=== PATIENT | male | born 1975 | race Caucasian/White ===

== ENCOUNTER 2018-02-20 16:35 | Emergency (ER) | payer SELFPAY ==
[2018-02-20 16:45] VITALS: BP 142/85; PULSE 114; O2SAT 97
--- NOTE | 2018-02-20 17:11 | ERPHSYRPT ---
- History of Present Illness Time Seen by Provider: 02/20/18 17:06 Source: patient, police Exam Limitations: no limitations Patient Subjective Stated Complaint: intoxication Triage Nursing Assessment: Pt intoxicated and in hand cuffs, no edema, pulses normal BP 142/85, lungs clear, doesn't appear to be in any distress Physician History: 43-year-old white male brought in handcuffs by the police patient apparently noted to blow a 0.3 on his alcohol breathalyzer test. Patient arrives he is alert oriented 3 he has full range of motion to all extremities. He is refusing an Accu-Chek and assisted wants to leave once to leave. Physical refill past medical history includes cyst removed from his right shoulder and orthopedic surgery. He denies any other past medical history. He states he drank 5 beers today. He denies illicit drug use. Timing/Duration: today Severity: moderate Modifying Factors: Improves With: nothing Associated Symptoms: denies symptoms Allergies/Adverse Reactions: No Known Drug Allergies Allergy (Verified 02/20/18 16:45) Home Medications: No Home Meds [No Home Meds] 1 ea [facility] 08/12/16 [History] Hx Tetanus, Diphtheria Vaccination/Date Given: No Hx Influenza Vaccination/Date Given: No Hx Pneumococcal Vaccination/Date Given: No - Review of Systems Constitutional: No Fever, No Chills Eyes: No Symptoms Ears, Nose, & Throat: No Symptoms Respiratory: No Cough, No Dyspnea Cardiac: No Chest Pain, No Edema, No Syncope Abdominal/Gastrointestinal: No Abdominal Pain, No Nausea, No Vomiting, No Diarrhea Genitourinary Symptoms: No Dysuria Musculoskeletal: No Back Pain, No Neck Pain Skin: No Rash Neurological: No Dizziness, No Focal Weakness, No Sensory Changes Psychological: Alcohol Abuse, No Drug Abuse, No Anxiety, No Depression, No Suicidal Ideations, No Homicidal Ideations, No Emotional Lability, No Hallucinations, No Memory Loss, No Mood Changes Endocrine: No Symptoms All Other Systems: Reviewed and Negative - Past Medical History Pertinent Past Medical History: No Other Medical History: cyst removed from right back shoulder approx 2014 - Past Surgical History Past Surgical History: Yes Musculoskeletal: Orthopedic Surgery - Social History Smoking Status: Current every day smoker How long have you smoked: YRS Exposure to second hand smoke: No Drug Use: none Patient Lives Alone: No - Nursing Vital Signs Nursing Vital Signs: Initial Vital Signs Temperature 98.7 F 02/20/18 16:36 Pulse Rate 114 H 02/20/18 16:36 Blood Pressure 142/85 02/20/18 16:36 O2 Sat by Pulse Oximetry 97 02/20/18 16:36 Pain Scale Pain Intensity 0 - Physical Exam General Appearance: no apparent distress, alert, No other (well-developed white male alert oriented ) Eye Exam: PERRL/EOMI, eyes nml inspection, No other Ears, Nose, Throat Exam: normal ENT inspection, TMs normal, pharynx normal, moist mucous membranes Neck Exam: normal inspection, non-tender, supple, full range of motion Respiratory Exam: normal breath sounds, lungs clear, No respiratory distress Cardiovascular Exam: regular rate/rhythm, normal heart sounds, normal peripheral pulses Gastrointestinal/Abdomen Exam: soft, normal bowel sounds, No tenderness, No mass Back Exam: normal inspection, normal range of motion, No CVA tenderness, No vertebral tenderness Extremity Exam: normal inspection, normal range of motion, pelvis stable Neurologic Exam: alert, 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, cooperative, normal mood/affect, nml cerebellar function, nml station & gait, sensation nml, No motor deficits Skin Exam: normal color, warm, dry, No rash SpO2 Interpretation: normal SpO2: 97 Oxygen Delivery: Room Air - Course Nursing assessment & vital signs reviewed: Yes - Progress Progress: improved Progress Note: 02/20/18 17:09 43-year-old white male arrives with police patient apparently was combative and admits to drinking 5 beers on arrival patient is swearing at staff he is alert oriented he cooperates with my examination but refuses Accu-Chek. He blew a 0.3 on blood alcohol test. Patient in no acute distress she denies significant past medical history Will discharge patient to police. - Departure Time of Disposition: 17:10 Departure Disposition: Long-Term/Alf Clinical Impression: Alcohol intoxication Qualifiers: Complication of substance-induced condition: uncomplicated Qualified Code(s): F10.920 - Alcohol use, unspecified with intoxication, uncomplicated Condition: Fair Critical Care Time: No Referrals: Provider,Unknown [NON-STAFF PHY W/O PRIVILEGES] - Additional Instructions: Proceed to [facility]. Follow-up with your family doctor. Do not drive.
== END 2018-02-20 17:16 | disposition home or self-care (01) ==
LOC: ED 16:35
DX: F10.920 Alcohol use, unspecified with intoxication, uncomplicated (principal)
CPT/HCPCS: 99283

== ENCOUNTER 2019-09-18 21:52 | Inpatient (IN) | payer MEDICAID ==
[2019-09-18] MEDS ORDERED: Sodium Chloride 0.9% 1000 ML 1,000 ML IV STA (23:06)
[2019-09-18] MEDS ORDERED: TORAdol 30 mg Injection IV ONE (23:08)
--- NOTE | 2019-09-18 23:13 | ERPHSYRPT ---
- History of Present Illness Time Seen by Provider: 09/18/19 22:40 Historian: patient Patient Subjective Stated Complaint: pt states he has been having abd pain, fever, chills since sunday. sttes yesterday he began h aving difficulty urinating. c/o pelvic pain radiating to bilat lower back. Triage Nursing Assessment: pt alert and oriented, ansers qeustions approp. pt ambulatory iwht steadyg ait noted, respirations nonlabredw ith lungs cta. abd soft nontender to light palpation. hypo bowel ounds noted x4. pt states he is unable to u rinate for sample at this time. Physician History: abd pain, lower abd pain since 4 days. along with vomiting diarrhea. eating drinking well. noticed urine to be dark, appeared like blood.. never had pain like this befre. healthy otherwise. no fever chills. no previous abd surgeries. pain sharp, lower abd, constant. also has some pain in b/l flanks., 8/10 pain in hypogastric area Allergies/Adverse Reactions: No Known Drug Allergies Allergy (Verified 02/20/18 16:45) Home Medications: No Home Meds [No Home Meds] 1 ea [facility] 08/12/16 [History] Hx Tetanus, Diphtheria Vaccination/Date Given: No (unknown) Hx Influenza Vaccination/Date Given: No Hx Pneumococcal Vaccination/Date Given: No Immunizations Up to Date: No - Review of Systems Constitutional: No Fever Eyes: No Symptoms Ears, Nose, & Throat: No Symptoms Respiratory: No Symptoms Cardiac: No Symptoms Abdominal/Gastrointestinal: Abdominal Pain, Nausea, Vomiting, Diarrhea Genitourinary Symptoms: Hematuria, No Dysuria, No Frequency Musculoskeletal: No Symptoms Skin: No Symptoms Psychological: No Symptoms - Past Medical History Pertinent Past Medical History: No Neurological History: No Pertinent History Cardiac History: No Pertinent History Respiratory History: No Pertinent History Other Medical History: cyst removed from right back shoulder approx 2014 - Past Surgical History Past Surgical History: Yes Musculoskeletal: Orthopedic Surgery - Social History Smoking Status: Current every day smoker How long have you smoked: 30yrs Exposure to second hand smoke: No Drug Use: none Patient Lives Alone: No - Nursing Vital Signs Nursing Vital Signs: Initial Vital Signs Temperature 98.4 F 09/18/19 22:22 Pulse Rate 92 H 09/18/19 22:22 Respiratory Rate 18 01/02/20 22:22 Blood Pressure 146/90 09/18/19 22:22 O2 Sat by Pulse Oximetry 97 09/18/19 22:22 Pain Scale Pain Intensity 8 - Physical Exam General Appearance: no apparent distress Eye Exam: PERRL/EOMI Ears, Nose, Throat Exam: normal ENT inspection Neck Exam: normal inspection Respiratory Exam: normal breath sounds Cardiovascular Exam: regular rate/rhythm Gastrointestinal/Abdomen Exam: soft, normal bowel sounds, No tenderness Back Exam: normal inspection, CVA tenderness Extremity Exam: normal inspection Neurologic Exam: alert, 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 Skin Exam: normal color, warm SpO2: 97 Ordered Tests: Active Orders 24 hr Category Date Time Status Code Status Order ROUTINE Care 09/18/19 23:06 Active Code Status Order ROUTINE Care 09/19/19 01:00 Active NG to Suction (Insertion) ROUTINE Care 09/19/19 00:45 Active ABDOMEN AND PELVIS W/0 CONTRAS [CT] Stat Exams 09/18/19 23:27 Taken CBC W DIFF Stat Lab 09/18/19 23:12 Completed CMP Stat Lab 09/18/19 23:12 Completed LIPASE Stat Lab 09/18/19 23:12 Completed Lactic Acid Stat Lab 09/18/19 23:06 Results Manual Differential NC Stat Lab 09/18/19 23:12 Completed OCCULT BLOOD, EMESIS Stat Lab 09/19/19 Uncollected UA W/RFX UR CULTURE Stat Lab 09/18/19 23:48 Ordered Transfer Order Routine Transfer 09/19/19 Ordered Medication Summary Generic Name Dose Route Start Last Admin Trade Name Freq PRN Reason Stop Dose Admin Piperacillin Sod/Tazobactam Sod 3.375 gm in 100 mls @ 200 mls/hr 09/19/19 00: 45 09/19/19 00:59 Zosyn 3.375gm/100 Ml D5w IV 09/19/19 01:14 100 ml/hr STAT STA 100 mls/hr Administration Sodium Chloride 1,000 mls @ 999 mls/hr 09/19/19 01:00 Sodium Chloride 0.9% 1000 Ml IV 09/19/19 02:00 .Q1H1M STA Discontinued Medications Generic Name Dose Route Start Last Admin Trade Name Freq PRN Reason Stop Dose Admin Al Hydrox/Mg Hydrox/Simethicone 20 ml 09/19/19 00:00 09/19/19 00:12 Maalox Es 30 Ml Unit Dose PO 09/19/19 00:01 20 ml STAT ONE Administration Al Hydrox/Mg Hydrox/Simethicone Confirm 09/19/19 00:07 Maalox Es 30 Ml Unit Dose Administered 09/19/19 00:08 Dose 30 ml .ROUTE .STK-MED ONE Sodium Chloride 1,000 mls @ 999 mls/hr 09/18/19 23:06 09/18/19 23:19 Sodium Chloride 0.9% 1000 Ml IV 09/19/19 00:06 999 mls/hr .Q1H1M STA Administration Sodium Chloride Confirm 09/18/19 23:14 Sodium Chloride 0.9% 1000 Ml Administered 09/18/19 23:15 Dose 1,000 mls @ ud .ROUTE .STK-MED ONE Piperacillin Sod/Tazobactam Sod Confirm 09/19/19 00:54 Zosyn 3.375gm/100 Ml D5w Administered 09/19/19 00:55 Dose 3.375 gm in 100 mls @ ud IV .STK-MED ONE Ketorolac Tromethamine 30 mg 09/18/19 23:08 09/18/19 23:20 Toradol 30 Mg Injection IV 09/18/19 23:09 30 mg STAT ONE Administration Ketorolac Tromethamine Confirm 09/18/19 23:14 Toradol 30 Mg Injection Administered 09/18/19 23:15 Dose 30 mg .ROUTE .STK-MED ONE Morphine Sulfate 4 mg 09/19/19 00:46 09/19/19 00:59 Morphine Sulfate 4 Mg Inj IV 09/19/19 00:47 4 mg STAT ONE Administration Morphine Sulfate Confirm 09/19/19 00:53 Morphine Sulfate 4 Mg Inj Administered 09/19/19 00:54 Dose 4 mg .ROUTE .STK-MED ONE Ondansetron HCl 4 mg 09/19/19 00:00 09/19/19 00:10 Zofran 4 Mg/2 Ml Vial IV 09/19/19 00:01 4 mg STAT ONE Administration Ondansetron HCl Confirm 09/19/19 00:07 Zofran 4 Mg/2 Ml Vial Administered 09/19/19 00:08 Dose 4 mg .ROUTE .STK-MED ONE Potassium Chloride 40 meq 09/18/19 23:44 09/19/19 00:10 Klor Con 10 Meq PO 09/18/19 23:45 40 meq STAT ONE Administration Potassium Chloride Confirm 09/19/19 00:07 Klor Con 10 Meq Administered 09/19/19 00:08 Dose 30 meq PO .STK-MED ONE Prochlorperazine Edisylate 10 mg 09/19/19 00:36 Compazine 10 Mg/2 Ml IV 09/19/19 00:37 STAT ONE Prochlorperazine Edisylate Confirm 09/19/19 00:53 Compazine 10 Mg/2 Ml Administered 09/19/19 00:54 Dose 10 mg .ROUTE .STK-MED ONE Lab/Rad Data: Laboratory Result Diagrams 09/18/19 23:12 09/18/19 23:12 Laboratory Results 09/18/19 09/18/19 09/18/19 Range/Units 23:12 23:12 23:06 WBC 11.0 H (4.0-10.5) K/mm3 RBC 5.09 (4.1-5.6) M/mm3 Hgb 17.8 (12.5-18.0) gm/dl Hct 49.1 (42-50) % MCV 96.5 (78-100) fl MCH 35.0 H (26-32) pg MCHC 36.3 H (32-36) g/dl RDW 11.7 (11.5-14.0) % Plt Count 111 L (150-450) K/mm3 MPV 11.1 H (6-9.5) fl Segmented Neutrophils 63 (36.-66.) % Band Neutrophils 16 H (0.0-2.0) % Lymphocytes (Manual) 6 L (24-44) % Monocytes (Manual) 15 H (0.0-12.0) % Platelet Estimate NORMAL (NORMAL) RBC Morphology NORMAL Sodium 127 L (137-145) mmol/L Potassium 3.2 L (3.5-5.1) mmol/L Chloride 84 L (98-107) mmol/L Carbon Dioxide 32 H (22-30) mmol/L Anion Gap 14.7 (5-15) MEQ/L BUN 22 H (9-20) mg/dL Creatinine 1.02 (0.66-1.25) mg/dL Estimated GFR > 60.0 ML/MIN Glucose 155 H (74-106) mg/dL Lactic Acid 2.3 H (0.4-2.0) Calcium 8.8 (8.4-10.2) mg/dL Total Bilirubin 1.20 (0.2-1.3) mg/dL AST 49 (17-59) U/L ALT 45 (0-50) U/L Alkaline Phosphatase 62 (38-126) U/L Serum Total Protein 8.0 (6.3-8.2) g/dL Albumin 3.8 (3.5-5.0) g/dL Lipase 13 L (23-300) U/L - Progress Progress: unchanged Discussed with : Epifanio Will see patient in: hospital (full admit) Counseled pt/family regarding: lab results, diagnosis (hyponatremia, hypokalemia , platelets low, lactate 2.3. ct abd pelvis shows high grade distal sb with perf and ext free intraperitoneal gas. pt started vomiting some blood. NG with suction, zosyn ordered. Jose Eduardo Tellez at 12:50 am who accepted the pt to the [facility]. will get OR ready. 2 l ns bolus in ER and then at 200 an hour. morphine dilaudid prn) - Departure Departure Disposition: Home Clinical Impression: Small bowel obstruction, Intestinal perforation Condition: Serious Critical Care Time: No Referrals: DOCTOR,NO FAMILY [Primary Care Provider] -
[2019-09-18] MEDS ORDERED: TORAdol 30 mg Injection ONE (23:14)
[2019-09-18] MEDS ORDERED: Sodium Chloride 0.9% 1000 ML 1,000 ML ONE (23:14)
[2019-09-18 23:16] LABS: Hematocrit 49.1 % (42-50); Hemoglobin 17.8 gm/dl (12.5-18.0); Mean Cell Volume 96.5 fl (78-100); Mean Corpuscular Hgb Concent. 36.3 g/dl (32-36); Mean Platelet Volume 11.1 fl (6-9.5); Platelet Count 111 K/mm3 (150-450); Red Blood Count 5.09 M/mm3 (4.1-5.6); Red Cell Distribution Width 11.7 % (11.5-14.0)
[2019-09-18 23:20] LABS: ALBUMIN 3.8 g/dL (3.5-5.0); ALKALINE PHOSPHATASE 62 U/L (38-126); ANION GAP 14.7 MEQ/L (5-15); BLOOD UREA NITROGEN 22 mg/dL (9-20); CHLORIDE 84 mmol/L (98-107); Calcium 8.8 mg/dL (8.4-10.2); Carbon Dioxide 32 mmol/L (22-30); Creatinine 1 1.02 mg/dL (0.66-1.25); Glucose 155 mg/dL (74-106); LIPASE 13 U/L (23-300); Potassium 3.2 mmol/L (3.5-5.1); SGOT/AST 49 U/L (17-59); SGPT/ALT 45 U/L (0-50); SODIUM 127 mmol/L (137-145)
[2019-09-18 23:33] LABS: Lactic Acid 2.3 (0.4-2.0)
[2019-09-18] MEDS ORDERED: Klor Con 10 MEQ PO ONE (23:44)
[2019-09-19] MEDS ORDERED: MAALOX ES 30 ML UNIT DOSE PO ONE
[2019-09-19] MEDS ORDERED: Zofran 4 MG/2 ML VIAL IV ONE
[2019-09-19] MEDS ORDERED: Klor Con 10 MEQ PO ONE (00:07)
[2019-09-19] MEDS ORDERED: MAALOX ES 30 ML UNIT DOSE ONE (00:07)
[2019-09-19] MEDS ORDERED: Zofran 4 MG/2 ML VIAL ONE ×3 (00:07→03:01)
[2019-09-19 00:23] LABS: BAND 16 % (0.0-2.0); Lymphocytes 6 % (24-44); Monocyte 15 % (0.0-12.0); Neutrophils 63 % (36.-66.); Platelet Estimate NORMAL (NORMAL); Total Cells Counted 100
[2019-09-19] MEDS ORDERED: Compazine 10 MG/2 ML IV ONE (00:36)
[2019-09-19] MEDS ORDERED: Zosyn 3.375GM/100 Ml D5W 3.375 GM/100 ML IVPB IV STA (00:45)
[2019-09-19] MEDS ORDERED: MORPHINE SULFATE 4 MG INJ IV ONE (00:46)
[2019-09-19] MEDS ORDERED: MORPHINE SULFATE 4 MG INJ ONE (00:53)
[2019-09-19] MEDS ORDERED: Compazine 10 MG/2 ML ONE (00:53)
[2019-09-19] MEDS ORDERED: Zosyn 3.375GM/100 Ml D5W 3.375 GM/100 ML IVPB IV ONE (00:54)
[2019-09-19] MEDS ORDERED: Sodium Chloride 0.9% 1000 ML 1,000 ML IV STA (01:00)
[2019-09-19] MEDS ORDERED: Sodium Chloride 0.9% 1000 ML 1,000 ML ONE (01:03)
[2019-09-19 01:11] LABS: Appearance SLIGHTLY CLOUDY (CLEAR); Bacteria RARE /HPF (NEGATIVE); Bilirubin SMALL (NEGATIVE); Blood NEGATIVE Ery/ul (0-5); Epithelial Cells RARE /HPF (FEW); Glucose NEGATIVE (NEGATIVE); Hyaline Casts 26-50 /LPF (0-2); Ketones NEGATIVE (NEGATIVE); Leukocyte Esterase NEGATIVE (NEGATIVE); Mucus SLIGHT /HPF (NEGATIVE); Nitrite NEGATIVE (NEGATIVE); Protein,Urine Dip 30 (Negative); RBC 0-2 /HPF (0-2); Specific Gravity 1.023 (1.005-1.025); Urobilinogen 4 mg/dL (0-1); WBC 0-2 /HPF (0-5)
[2019-09-19] MEDS ORDERED: Pepcid 20 MG VIAL IV ONE ×2 (01:53→01:54)
[2019-09-19] MEDS ORDERED: BICITRA 30 ML CUP PO STA (01:53)
[2019-09-19] MEDS ORDERED: Lactated Ringers 3,000 ML IV ONE (01:59)
[2019-09-19] MEDS ORDERED: Zemuron 100 MG/10 ML ONE (02:01)
[2019-09-19] MEDS ORDERED: Quelicin Fliptop 200 MG/10 ML ONE (02:01)
[2019-09-19] MEDS ORDERED: SUBLIMAZE 100 MCG/2 ML ONE (02:01)
[2019-09-19] MEDS ORDERED: DIPRIVAN 200 MG/20 ML IV ONE (02:01)
[2019-09-19] MEDS ORDERED: Lactated Ringers 1,000 ML IV ONE (02:07)
[2019-09-19] MEDS ORDERED: Decadron 4 MG INJ ONE ×2 (02:08→03:01)
[2019-09-19] MEDS ORDERED: MEFOXIN 2 GM PREMIX** 2 GM/50 ML ML IV ONE (02:10)
[2019-09-19] MEDS ORDERED: MEFOXIN 2 GM PREMIX** 2 GM/50 ML ML IV SCH (03:00)
[2019-09-19] MEDS ORDERED: Lasix 20 MG/2 ML ONE (04:02)
[2019-09-19] MEDS ORDERED: XYLOCAINE 2%/Epi 1:200000 20ML VIAL MPF ONE (04:05)
[2019-09-19] MEDS ORDERED: NAROPIN IV SCH (04:50)
[2019-09-19] MEDS ORDERED: [UNRECOGNIZED DRUG - OTHER] IV SCH (04:50)
[2019-09-19] MEDS ORDERED: SUFENTA IV SCH (04:50)
[2019-09-19 05:59] LABS: Hematocrit 43.2 % (42-50); Hemoglobin 15.4 gm/dl (12.5-18.0); Mean Cell Volume 98.2 fl (78-100); Mean Corpuscular Hgb Concent. 35.6 g/dl (32-36); Mean Platelet Volume 11.2 fl (6-9.5); Platelet Count 86 K/mm3 (150-450); Red Cell Distribution Width 11.5 % (11.5-14.0); White Blood Count 6.1 K/mm3 (4.0-10.5)
[2019-09-19] MEDS ORDERED: Sodium Chloride 0.9% 1000 ML 1,000 ML IV SCH ×2 (06:00→06:29)
[2019-09-19 06:17] LABS: ANION GAP 9.1 MEQ/L (5-15); BLOOD UREA NITROGEN 19 mg/dL (9-20); CHLORIDE 94 mmol/L (98-107); Calcium 7.5 mg/dL (8.4-10.2); Carbon Dioxide 31 mmol/L (22-30); Creatinine 1 0.76 mg/dL (0.66-1.25); Glucose 164 mg/dL (74-106); Potassium 3.6 mmol/L (3.5-5.1); SODIUM 130 mmol/L (137-145)
[2019-09-19] MEDS ORDERED: Zofran 4 MG/2 ML VIAL IV PRN ×2 (06:29→07:45)
[2019-09-19] MEDS ORDERED: DILAUDID 2 MG INJECTION IV PRN (06:29)
[2019-09-19] MEDS ORDERED: MORPHINE SULFATE 2 MG INJ IV PRN (06:29)
[2019-09-19 07:16] LABS: Amourphous Crystal MANY /HPF (NEGATIVE); Appearance TURBID (CLEAR); Bilirubin NEGATIVE (NEGATIVE); Blood NEGATIVE Ery/ul (0-5); Glucose NEGATIVE (NEGATIVE); Ketones NEGATIVE (NEGATIVE); Leukocyte Esterase NEGATIVE (NEGATIVE); Nitrite NEGATIVE (NEGATIVE); Protein,Urine Dip NEGATIVE (Negative); Specific Gravity 1.027 (1.005-1.025); Urobilinogen NEGATIVE mg/dL (0-1)
[2019-09-19] MEDS ORDERED: TYLENOL 325 MG PO PRN (07:36)
[2019-09-19] MEDS ORDERED: CLARITIN 10 MG PO PRN (07:45)
[2019-09-19] MEDS ORDERED: NALBUPHINE HCL 10 MG/1 ML INJECTION IV PRN (07:45)
[2019-09-19] MEDS ORDERED: Sodium Chloride 0.9% 10 ML FLUSH Syringe IJ PRN (07:45)
[2019-09-19] MEDS ORDERED: Narcan 0.4 MG/ML IV PRN (07:45)
[2019-09-19] MEDS ORDERED: PERCOCET TABLET 5/325MG PO PRN (07:45)
--- NOTE | 2019-09-19 07:48 | HP ---
CHIEF COMPLAINT: Abdominal pain. HISTORY OF PRESENT ILLNESS: This patient presents with nausea, vomiting and diarrhea that started Sunday with pain that was initially somewhat mild and last night it became quite severe. He stopped urinating tonight and decided to come to the emergency room tonight. He has been having fever. He denies chest pain or shortness of breath. He has not had anything like this before. He has never had a colonoscopy. He has been having copious nausea and vomiting today. He did think he had a stomach flu but then became concerned when he stopped urinating. His pain was more severe in the lower abdomen. REVIEW OF SYSTEMS: Twelve systems reviewed. Negative other than in history of present illness. PAST MEDICAL HISTORY: None. PAST SURGICAL HISTORY: Cyst removed from his shoulder. MEDICATIONS: [id number] reflux and allergy medication. ALLERGIES: NKDA. SOCIAL HISTORY: Positive tobacco and alcohol about six or seven beers a day. FAMILY HISTORY: No inflammatory bowel disorder. No colon cancer. PHYSICAL EXAMINATION: GENERAL: Moderate distress. HEENT: Sclera nonicteric. Extraocular movements intact. NG tube in place with bilious output. CHEST: Nonlabored breathing. Clear to auscultation bilaterally. ABDOMEN: Distended with diffuse guarding and tenderness greatest in the lower abdomen but diffusely peritoneal. NEURO: Awake, alert, oriented. PSYCH: Appropriate mood and affect. LAB DATA AND TESTS: White blood cell 11,000. BMP significant for hypernatremia with sodium of 120. Lactic acid is also slightly elevated. CT scan consistent with perforated viscus and small bowel obstruction with the majority of the free air in the pelvis. ASSESSMENT: Perforated viscus with small bowel obstruction. Sepsis from perforated viscus. Hypernatremia. PLAN: CT scan was reviewed personally. I would suspect this is most likely perforated diverticulitis with a secondary small bowel obstruction. However it is not totally clear from this imaging. After extensive discussion about the risks and benefits of surgery including high likelihood of needing a colostomy and expectation for probably a bowel resection or other indicated procedure depending on what is found at the time of laparotomy and the risk of surgery including risk of bleeding, infection, injury to other organs as well as other medical surgical complications, the patient would like to proceed with surgery. The patient is receiving fluid resuscitation, Zosyn and will plan to go to the operating room.
[2019-09-19] MEDS ORDERED: Lactated Ringers 1,000 ML IV SCH (08:00)
--- NOTE | 2019-09-19 09:46 | XRAY ---
Indication: Pelvic pain. Nausea, vomiting, diarrhea 1 week. Hematuria. Multiple contiguous axial images obtained through the abdomen and pelvis without contrast as ordered. Comparison: None Lung bases demonstrates bibasilar atelectasis/scarring. No infiltrate or effusion. Heart is not enlarged. Stomach is abnormally fluid distended. Small bowel loops are also abnormally fluid distended up to 5 cm diameter with fluid leveling up to level of the midabdomen where there is suggestion for partial obstruction. Colon is predominantly decompressed with mild bowel gas and scattered sigmoid diverticulosis. The sigmoid colon also demonstrates abnormal wall thickening/stranding favoring diverticulitis. Pelvis also demonstrates focal collection of free air and free fluid collection worrisome for perforation. Additional small free air throughout the abdomen. Diffuse fatty liver. Spleen is enlarged measuring 16.2 cm in greatest axial dimension. Remaining gallbladder, pancreas, adrenal glands, kidneys, ureters, and bladder appear unremarkable for noncontrast exam. Minimal aortoiliac calcifications without AAA. Osseous structures intact with minimal degenerative changes throughout the spine. Impression: 1. Abnormal fluid distended stomach and small bowel loops up to the level of the mid abdomen with fluid leveling worrisome for high-grade obstruction. 2. Sigmoid diverticulitis with perforation. 3. Incidental fatty liver and splenomegaly. Comment: Preliminary interpretation was made by [facility] who does not report additional findings including sigmoid diverticulitis and splenomegaly.
[2019-09-19] MEDS: Zosyn 3.375GM/100 Ml D5W 3.375 GM/100 ML IVPB IV SCH ×4 (11:19→23:15)
[2019-09-19] MEDS: Nicoderm CQ 21 MG TOP SCH (16:02)
[2019-09-19] MEDS: Sodium Chloride 0.9% 10 ML FLUSH Syringe IJ SCH ×2 (16:03→20:43)
[2019-09-19] MEDS ORDERED: Phenergan 25 MG INJ IV PRN (17:30)
[2019-09-19] MEDS ORDERED: Phenergan 25 MG INJ IM PRN (17:30)
[2019-09-19] MEDS ORDERED: Ativan 2 MG/1 ML VIAL IV PRN (17:30)
[2019-09-19] MEDS: VITAMINS FOR INFUSION IV SCH ×4 (18:08)
[2019-09-19] MEDS: FOLNATE IV SCH ×4 (18:08)
[2019-09-19] MEDS: [UNRECOGNIZED DRUG - OTHER] IV SCH ×4 (18:08)
[2019-09-19] MEDS: MORPHINE SULFATE 2 MG INJ IV PRN (20:42)
[2019-09-20] MEDS ORDERED: Sodium Chloride 0.9% 1000 ML 1,000 ML ONE ×2 (02:05→17:34)
[2019-09-20] MEDS: FOLNATE IV SCH ×12 (02:06→17:52)
[2019-09-20] MEDS: [UNRECOGNIZED DRUG - OTHER] IV SCH ×12 (02:06→17:52)
[2019-09-20] MEDS: VITAMINS FOR INFUSION IV SCH ×12 (02:06→17:52)
[2019-09-20] MEDS: Sodium Chloride 0.9% 10 ML FLUSH Syringe IJ SCH ×3 (05:47→21:22)
[2019-09-20] MEDS: Zosyn 3.375GM/100 Ml D5W 3.375 GM/100 ML IVPB IV SCH ×3 (05:47→17:52)
[2019-09-20 06:13] LABS: Hematocrit 43.5 % (42-50); Hemoglobin 14.8 gm/dl (12.5-18.0); Mean Cell Volume 100.5 fl (78-100); Mean Corpuscular Hemoglobin 34.2 pg (26-32); Mean Platelet Volume 11.1 fl (7.5-11.0); Platelet Count 97 K/mm3 (150-450); Red Blood Count 4.33 M/mm3 (4.1-5.6); Red Cell Distribution Width 11.7 % (11.5-14.0); White Blood Count 9.4 K/mm3 (4.0-10.5)
[2019-09-20 06:22] LABS: ALBUMIN 2.6 g/dL (3.5-5.0); ALKALINE PHOSPHATASE 38 U/L (38-126); ANION GAP 7.4 MEQ/L (5-15); BLOOD UREA NITROGEN 14 mg/dL (9-20); CHLORIDE 97 mmol/L (98-107); Calcium 7.5 mg/dL (8.4-10.2); Carbon Dioxide 34 mmol/L (22-30); Creatinine 1 0.65 mg/dL (0.66-1.25); Glucose 100 mg/dL (74-106); MAGNESIUM 2.3 mg/dL (1.6-2.3); Potassium 3.4 mmol/L (3.5-5.1); SGOT/AST 41 U/L (17-59); SGPT/ALT 31 U/L (0-50); SODIUM 136 mmol/L (137-145)
[2019-09-20 07:05] LABS: Slide Review YES
--- NOTE | 2019-09-20 08:18 | PCM.NOTE ---
Date and Time: 09/20/19811 Subjective Assessment: doing better - Review of Systems Constitutional: No Fever, No Chills Eyes: No Symptoms Ears, Nose, & Throat: No Symptoms Respiratory: No Cough, No Short Of Breath Cardiac: No Chest Pain, No Edema, No Syncope Abdominal/Gastrointestinal: No Abdominal Pain, No Nausea, No Vomiting, No Diarrhea Genitourinary Symptoms: No Dysuria Musculoskeletal: No Back Pain, No Neck Pain Skin: No Rash Neurological: No Dizziness, No Focal Weakness, No Sensory Changes Psychological: No Symptoms Endocrine: No Symptoms Hematologic/Lymphatic: No Symptoms Immunological/Allergic: No Symptoms Objective Exam General Appearance: no apparent distress, alert Neurologic Exam: alert, 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, cooperative, normal mood/affect, nml cerebellar function, sensation nml, No motor deficits Skin Exam: normal color, warm, dry Wound Assessment: Skin/Wound Assessment Wound/Incision Assessment Start: 09/19/19 23: 32 Text: Status: Active Freq: Q4H Protocol: Document 09/20/19 03:41 AW (Rec: 09/20/19 03:43 AW [id number]) Wound/Incision Assessment Abdomen Wound Assessment Shift Assessment Wound Type Incision Wound Stage Non Pressure Wound Dressing Status Dry & Intact Drainage Amount Minimal Drainage Description Sanguineous Drainage Odor None/Absent Comment vertical midline abdominal dressing cdi, ca to right abd draining serosangious drainage , colostomy to left abdomen patent with brown liquid stool , abdominal binder in place Right Abdomen Drain Type CA drain Drainage Description Serosanguineous Drainage Amount (ml) 60 Wound Photo Photo Taken No Eye Exam: PERRL, EOMI, eyes nml inspection Ears, Nose, Throat Exam: normal ENT inspection, pharynx normal, moist mucous membranes Neck Exam: normal inspection, non-tender, supple, full range of motion Respiratory Exam: normal breath sounds, lungs clear, No respiratory distress Cardiovascular Exam: regular rate/rhythm, normal heart sounds Gastrointestinal/Abdomen Exam: soft, No tenderness, No mass Extremity Exam: normal inspection, normal range of motion Back Exam: normal inspection, normal range of motion, No CVA tenderness, No vertebral tenderness Male Genitalia Exam: deferred Rectal Exam: deferred OBJECTIVE DATA Vital Signs: Vital Signs - 24 hr Temp Pulse Resp BP Pulse Ox 09/20/19 03:41 97.6 F 84 18 178/95 96 09/20/19 00:00 97.6 F 85 18 168/89 96 09/19/19 20:00 97.4 F 91 H 18 156/92 94 L 09/19/19 19:35 96 09/19/19 14:00 97.3 F 94 H 18 132/77 97 09/19/19 13:50 94 L 09/19/19 10:30 98.8 F 93 H 25 H 134/78 94 L 09/19/19 09:45 94 L 09/19/19 09:30 99.7 F 97 H 16 130/71 95 09/19/19 08:30 98.6 F 89 129/74 98 09/19/19 08:22 98.4 F 92 H 149/95 99 Oxygen-Last 24 hours O2 Percentage 1 Liter = 24% O2 Percentage 1 Liter = 24% O2 Percentage 1 Liter = 24% O2 Percentage 1 Liter = 24% O2 Percentage 1 Liter = 24% O2 Percentage 1 Liter = 24% O2 Percentage 2 Liters = 28% Pain Assessment - Last Documented Pain Intensity 0 Pain Scale Used 0-10 Pain Scale Intake and Output: Intake & Output 09/17/19 09/18/19 09/19/19 09/20/19 11:59 11:59 11:59 11:59 Intake Total 3704 Output Total 950 2235 Balance -950 1469 Weight 81.647 kg Lab Results: Lab Results-Last 24 Hours 09/20/19 09/20/19 Range/Units 05:46 05:46 WBC 9.4 (4.0-10.5) K/mm3 RBC 4.33 (4.1-5.6) M/mm3 Hgb 14.8 (12.5-18.0) gm/dl Hct 43.5 (42-50) % MCV 100.5 H (78-100) fl MCH 34.2 H (26-32) pg MCHC 34.0 (32-36) g/dl RDW 11.7 (11.5-14.0) % Plt Count 97 L (150-450) K/mm3 MPV 11.1 H (7.5-11.0) fl Sodium 136 L (137-145) mmol/L Potassium 3.4 L (3.5-5.1) mmol/L Chloride 97 L (98-107) mmol/L Carbon Dioxide 34 H (22-30) mmol/L Anion Gap 7.4 (5-15) MEQ/L BUN 14 (9-20) mg/dL Creatinine 0.65 L (0.66-1.25) mg/dL Estimated GFR > 60.0 ML/MIN Glucose 100 (74-106) mg/dL Calcium 7.5 L (8.4-10.2) mg/dL Magnesium 2.3 (1.6-2.3) mg/dL Total Bilirubin 0.90 (0.2-1.3) mg/dL AST 41 (17-59) U/L ALT 31 (0-50) U/L Alkaline Phosphatase 38 (38-126) U/L Serum Total Protein 6.0 L (6.3-8.2) g/dL Albumin 2.6 L (3.5-5.0) g/dL Slides for Path Review YES Radiology Exams: Radiology Procedures Category Date Time Status ABDOMEN AND PELVIS W/0 CONTRAS [CT] Stat Exams 09/18/19 23:27 Completed Multi-Disciplinary Progress Notes: Multi-Disciplinary Progress Notes 09/19/19 10:38 Case Management Note by Pam Ramirez spoke with pt regarding needs at discharge- pt plans to return home at discharge and denies needs at this time. Initialized on 09/19/19 10:38 - END OF NOTE Last Vital Signs Temp 97.6 F 09/20/19 03:41 Pulse 84 09/20/19 03:41 Resp 18 09/20/19 03:41 BP 178/95 09/20/19 03:41 Pulse Ox 96 09/20/19 03:41 Allergies No Known Drug Allergies Allergy (Verified 02/20/18 16:45) Active Medications Acetaminophen (Tylenol 325 Mg) 650 mg PO Q4H PRN PRN PRN Reason: TEMP > 100 Stop: 10/19/19 07:35 Ropivacaine 62.5 mg/Sufentanil Citrate 250 mcg/Sodium Chloride 267.5 mls @ 10 mls/hr IV .Q24H STEVE Stop: 10/19/19 04:49 Piperacillin Sod/Tazobactam Sod (Zosyn 3.375gm/100 Ml D5w) 3.375 gm in 100 mls @ 200 mls/hr IV Q6HT STEVE Stop: 10/19/19 06:59 Last Admin: 09/20/19 05:47 Dose: 200 mls/hr Folic Acid 1 mg/ Multivitamins /Minerals 10 ml/ Thiamine HCl 100 mg/ Sodium Chloride 1,011.2 mls @ 150 mls/hr IV .BY DURATION [facility] Stop: 10/19/19 17:14 Last Admin: 09/19/19 18:08 Dose: 150 mls/hr Sodium Chloride (Sodium Chloride 0.9% 1000 Ml) 1,000 mls @ 150 mls/hr IV .BY DURATION [facility] Stop: 10/19/19 17:14 Last Admin: 09/20/19 02:06 Dose: 150 mls/hr Loratadine (Claritin 10 Mg) 10 mg PO QDP PRN PRN Reason: ITCHING Stop: 10/19/19 07:44 Lorazepam (Ativan 2 Mg/1 Ml Vial) 0 mg IV Q2-4HPRN PRN Stop: 10/19/19 17:29 Morphine Sulfate (Morphine Sulfate 2 Mg Inj) 2 - 4 mg IV Q2H/PRN PRN PRN Reason: SEVERE PAIN Stop: 09/24/19 07:44 Last Admin: 09/19/19 20:42 Dose: 2 mg Nalbuphine HCl (Nalbuphine Hcl 10 Mg/1 Ml Injection) 5 mg IV Q4H PRN PRN PRN Reason: SEVERE ITCHING Stop: 10/19/19 07:44 Naloxone HCl (Narcan 0.4 Mg/Ml) 0.1 mg IV PRN PRN Stop: 10/19/19 07:44 Nicotine (Nicoderm Cq 21 Mg) 21 mg TOP Q24H [facility] Stop: 10/19/19 14:59 Last Admin: 09/19/19 16:02 Dose: 21 mg Ondansetron HCl (Zofran 4 Mg/2 Ml Vial) 4 mg IVIM Q6H PRN PRN PRN Reason: NAUSEA/VOMITING Stop: 10/19/19 06:28 Ondansetron HCl (Zofran 4 Mg/2 Ml Vial) 4 mg IV PRN PRN PRN Reason: NAUSEA Stop: 10/19/19 07:44 Oxycodone/Acetaminophen (Percocet Tablet 5/325mg) 0 tab PO Q4H/PRN PRN PRN Reason: MODERATE PAIN Stop: 09/24/19 07:44 Promethazine HCl (Phenergan 25 Mg Inj) 12.5 mg IV Q4H/PRN PRN PRN Reason: NAUSEA/VOMITING Stop: 10/19/19 17:29 Promethazine HCl (Phenergan 25 Mg Inj) 12.5 mg IM Q4H/PRN PRN PRN Reason: NAUSEA/VOMITING Stop: 10/19/19 17:29 Sodium Chloride (Sodium Chloride 0.9% 10 Ml Flush Syringe) 10 ml IJ QSHIFT [facility] Stop: 10/19/19 13:59 Last Admin: 09/20/19 05:47 Dose: 10 ml Sodium Chloride (Sodium Chloride 0.9% 10 Ml Flush Syringe) 10 ml IJ PRN PRN Stop: 10/19/19 07:44 Intake & Output 09/19/19 09/20/19 11:59 11:59 Intake Total 3704 Output Total 950 2235 Balance -950 1469 Weight 81.647 kg Orders 09/19/19 13:00 Incentive Spirometry UD 09/19/19 15:00 Nicotine 21 mg [Nicoderm CQ 21 MG] 21 mg TOP Q24H 09/19/19 17:30 Lorazepam 2 mg/1 ml [Ativan 2 MG/1 ML VIAL] 0 mg IV Q2-4HPRN PRN Promethazine HCl 25 mg Amp [Phenergan 25 MG INJ] 12.5 mg IM Q4H/PRN PRN Promethazine HCl 25 mg Amp [Phenergan 25 MG INJ] 12.5 mg IV Q4H/PRN PRN Lab Tests 09/20/19 09/20/19 05:46 05:46 WBC 9.4 RBC 4.33 Hgb 14.8 Hct 43.5 MCV 100.5 H MCH 34.2 H MCHC 34.0 RDW 11.7 Plt Count 97 L MPV 11.1 H Sodium 136 L Potassium 3.4 L Chloride 97 L Carbon Dioxide 34 H Anion Gap 7.4 BUN 14 Creatinine 0.65 L Estimated GFR > 60.0 Glucose 100 Calcium 7.5 L Magnesium 2.3 Total Bilirubin 0.90 AST 41 ALT 31 Alkaline Phosphatase 38 Serum Total Protein 6.0 L Albumin 2.6 L Slides for Path Review YES Assessment/Plan (1) Intestinal perforation Current Visit: Yes Status: Acute Assessment & Plan: s/p open laparotomy Code(s): K63.1 - PERFORATION OF INTESTINE (NONTRAUMATIC) (2) Small bowel obstruction Current Visit: Yes Status: Acute Code(s): K56.609 - UNSP INTESTNL OBST, UNSP TO PARTIAL VERSUS COMPLETE OBST
[2019-09-20] MEDS: Nicoderm CQ 21 MG TOP SCH (14:30)
[2019-09-21] MEDS: Zosyn 3.375GM/100 Ml D5W 3.375 GM/100 ML IVPB IV SCH ×5 (00:19→23:08)
[2019-09-21] MEDS ORDERED: Sodium Chloride 0.9% 1000 ML 1,000 ML ONE (01:48)
[2019-09-21] MEDS: FOLNATE IV SCH ×13 (01:49→21:05)
[2019-09-21] MEDS: VITAMINS FOR INFUSION IV SCH ×13 (01:49→21:05)
[2019-09-21] MEDS: [UNRECOGNIZED DRUG - OTHER] IV SCH ×13 (01:49→21:05)
[2019-09-21 05:13] LABS: Hemoglobin 15.1 gm/dl (12.5-18.0); Mean Cell Volume 101.6 fl (78-100); Mean Corpuscular Hemoglobin 34.9 pg (26-32); Mean Corpuscular Hgb Concent. 34.3 g/dl (32-36); Mean Platelet Volume 11.2 fl (7.5-11.0); Platelet Count 124 K/mm3 (150-450); Red Blood Count 4.33 M/mm3 (4.1-5.6); Red Cell Distribution Width 11.8 % (11.5-14.0); White Blood Count 10.9 K/mm3 (4.0-10.5)
[2019-09-21 05:26] LABS: ANION GAP 6.3 MEQ/L (5-15); BLOOD UREA NITROGEN 13 mg/dL (9-20); CHLORIDE 97 mmol/L (98-107); Calcium 7.4 mg/dL (8.4-10.2); Carbon Dioxide 37 mmol/L (22-30); Creatinine 1 0.56 mg/dL (0.66-1.25); Glucose 89 mg/dL (74-106); SODIUM 137 mmol/L (137-145)
[2019-09-21 05:37] LABS: Potassium 2.6 mmol/L (3.5-5.1)
[2019-09-21] MEDS: Sodium Chloride 0.9% 10 ML FLUSH Syringe IJ SCH ×3 (05:54→21:39)
[2019-09-21] MEDS: POTASSIUM CHLORIDE 20 mEq IN WATER 100ML 20 MEQ/100 ML BAG IV SCH ×2 (05:56→08:23)
--- NOTE | 2019-09-21 06:09 | PCM.NOTE ---
Date and Time: 09/21/19606 Subjective Assessment: doing ok, low potassium level 2.7 - Review of Systems Constitutional: No Fever, No Chills Eyes: No Symptoms Ears, Nose, & Throat: No Symptoms Respiratory: No Cough, No Short Of Breath Cardiac: No Chest Pain, No Edema, No Syncope Abdominal/Gastrointestinal: No Abdominal Pain, No Nausea, No Vomiting, No Diarrhea Genitourinary Symptoms: No Dysuria Musculoskeletal: No Back Pain, No Neck Pain Skin: No Rash Neurological: No Dizziness, No Focal Weakness, No Sensory Changes Psychological: No Symptoms Endocrine: No Symptoms Hematologic/Lymphatic: No Symptoms Immunological/Allergic: No Symptoms Objective Exam General Appearance: no apparent distress, alert Neurologic Exam: alert, 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, cooperative, normal mood/affect, nml cerebellar function, sensation nml, No motor deficits Skin Exam: normal color, warm, dry Wound Assessment: Skin/Wound Assessment Wound/Incision Assessment Start: 09/19/19 23: 32 Text: Status: Active Freq: Q4H Protocol: Document 09/21/19 04:00 AW (Rec: 09/21/19 05:40 AW [id number]) Wound/Incision Assessment Abdomen Wound Assessment Shift Assessment Wound Type Incision Wound Stage Non Pressure Wound Dressing Status Dry & Intact Drainage Amount Minimal Drainage Description Sanguineous Drainage Odor None/Absent Comment MIDLINE SURGICAL INCISION, OLD DRY DRAINAGE NOTED, COLOSTOMY IN PLACE, STOMA BEEFY RED, ANAY ALSO IN PLACE, ABDOMINAL BINDER IN PLACE Right Abdomen Drain Type ANAY drain Drainage Description Serosanguineous Wound Photo Photo Taken No Eye Exam: PERRL, EOMI, eyes nml inspection Ears, Nose, Throat Exam: normal ENT inspection, pharynx normal, moist mucous membranes Neck Exam: normal inspection, non-tender, supple, full range of motion Respiratory Exam: normal breath sounds, lungs clear, No respiratory distress Cardiovascular Exam: regular rate/rhythm, normal heart sounds Gastrointestinal/Abdomen Exam: soft, other (hypoactive bowel sound), No tenderness, No mass Extremity Exam: normal inspection, normal range of motion Back Exam: normal inspection, normal range of motion, No CVA tenderness, No vertebral tenderness Male Genitalia Exam: deferred Rectal Exam: deferred OBJECTIVE DATA Vital Signs: Vital Signs - 24 hr Temp Pulse Resp BP Pulse Ox 09/21/19 04:10 97.9 F 80 19 167/84 96 09/20/19 23:49 98.1 F 83 17 177/99 95 09/20/19 21:52 95 09/20/19 20:14 97.8 F 78 17 170/81 94 L 09/20/19 16:00 97.8 F 75 16 162/85 95 09/20/19 12:00 97.6 F 80 19 168/80 95 09/20/19 08:00 98.2 F 115 H 17 138/74 91 L Oxygen-Last 24 hours O2 Percentage 2 Liters = 28% O2 Percentage 2 Liters = 28% O2 Percentage 2 Liters = 28% O2 Percentage 2 Liters = 28% O2 Percentage 2 Liters = 28% O2 Percentage 2 Liters = 28% Pain Assessment - Last Documented Pain Intensity 0 Pain Scale Used 0-10 Pain Scale Intake and Output: Intake & Output 09/18/19 09/19/19 09/20/19 09/21/19 11:59 11:59 11:59 11:59 Intake Total 3707 3858 Output Total 638 5712 3890 Balance -950 799 -32 Weight 81.647 kg Lab Results: Lab Results-Last 24 Hours 09/20/19 09/20/19 09/21/19 Range/Units 05:46 05:46 05:07 WBC 9.4 10.9 H (4.0-10.5) K/mm3 RBC 4.33 4.33 (4.1-5.6) M/mm3 Hgb 14.8 15.1 (12.5-18.0) gm/dl Hct 43.5 44.0 (42-50) % MCV 100.5 H 101.6 H (78-100) fl MCH 34.2 H 34.9 H (26-32) pg MCHC 34.0 34.3 (32-36) g/dl RDW 11.7 11.8 (11.5-14.0) % Plt Count 97 L 124 L (150-450) K/mm3 MPV 11.1 H 11.2 H (7.5-11.0) fl Sodium 136 L (137-145) mmol/L Potassium 3.4 L (3.5-5.1) mmol/L Chloride 97 L (98-107) mmol/L Carbon Dioxide 34 H (22-30) mmol/L Anion Gap 7.4 (5-15) MEQ/L BUN 14 (9-20) mg/dL Creatinine 0.65 L (0.66-1.25) mg/dL Estimated GFR > 60.0 ML/MIN Glucose 100 (74-106) mg/dL Calcium 7.5 L (8.4-10.2) mg/dL Magnesium 2.3 (1.6-2.3) mg/dL Total Bilirubin 0.90 (0.2-1.3) mg/dL AST 41 (17-59) U/L ALT 31 (0-50) U/L Alkaline Phosphatase 38 (38-126) U/L Serum Total Protein 6.0 L (6.3-8.2) g/dL Albumin 2.6 L (3.5-5.0) g/dL Slides for Path Review YES 09/21/19 Range/Units 05:07 WBC (4.0-10.5) K/mm3 RBC (4.1-5.6) M/mm3 Hgb (12.5-18.0) gm/dl Hct (42-50) % MCV (78-100) fl MCH (26-32) pg MCHC (32-36) g/dl RDW (11.5-14.0) % Plt Count (150-450) K/mm3 MPV (7.5-11.0) fl Sodium 137 (137-145) mmol/L Potassium 2.6 L* D (3.5-5.1) mmol/L Chloride 97 L (98-107) mmol/L Carbon Dioxide 37 H (22-30) mmol/L Anion Gap 6.3 (5-15) MEQ/L BUN 13 (9-20) mg/dL Creatinine 0.56 L (0.66-1.25) mg/dL Estimated GFR > 60.0 ML/MIN Glucose 89 (74-106) mg/dL Calcium 7.4 L (8.4-10.2) mg/dL Magnesium (1.6-2.3) mg/dL Total Bilirubin (0.2-1.3) mg/dL AST (17-59) U/L ALT (0-50) U/L Alkaline Phosphatase (38-126) U/L Serum Total Protein (6.3-8.2) g/dL Albumin (3.5-5.0) g/dL Slides for Path Review Multi-Disciplinary Progress Notes: Multi-Disciplinary Progress Notes 09/20/19 16:25 Respiratory Note by Jonna Gates 0900PT DOING INCENTIVE SELF CARE Initialized on 09/20/19 16:25 - END OF NOTE Assessment/Plan (1) Hypokalemia due to excessive gastrointestinal loss of potassium Current Visit: Yes Status: Acute Assessment & Plan: will replace potassium Code(s): E87.6 - HYPOKALEMIA (2) Intestinal perforation Current Visit: Yes Status: Acute Assessment & Plan: s/p open laparotomy Code(s): K63.1 - PERFORATION OF INTESTINE (NONTRAUMATIC) (3) Small bowel obstruction Current Visit: Yes Status: Acute Code(s): K56.609 - UNSP INTESTNL OBST, UNSP TO PARTIAL VERSUS COMPLETE OBST
[2019-09-21] MEDS ORDERED: FLUZONE QUAD 2019-2020 SYRINGE IM ONE (10:00)
[2019-09-21] MEDS ORDERED: DILAUDID 2 MG INJECTION IV PRN (10:56)
[2019-09-21] MEDS: Zofran 4 MG/2 ML VIAL IVIM PRN (11:01)
[2019-09-21] MEDS: MORPHINE SULFATE 2 MG INJ IV PRN (11:02)
[2019-09-21] MEDS ORDERED: D5W/0.45NS W/ 20mEq KCl 1000 ML 1,000 ML IV SCH (15:00)
[2019-09-21] MEDS: Nicoderm CQ 21 MG TOP SCH (15:09)
[2019-09-21] MEDS: PROTONIX 40 MG IV IV SCH (15:09)
[2019-09-21] MEDS ORDERED: D5W/0.45NS W/ 20mEq KCl 1000 ML 1,000 ML IV ONE (20:27)
[2019-09-22 05:23] LABS: Hematocrit 39.4 % (42-50); Hemoglobin 13.4 gm/dl (12.5-18.0); Mean Cell Volume 102.9 fl (78-100); Mean Platelet Volume 10.2 fl (7.5-11.0); Platelet Count 173 K/mm3 (150-450); Red Blood Count 3.83 M/mm3 (4.1-5.6); Red Cell Distribution Width 11.7 % (11.5-14.0); White Blood Count 9.3 K/mm3 (4.0-10.5)
[2019-09-22 05:38] LABS: ALBUMIN 2.4 g/dL (3.5-5.0); ALKALINE PHOSPHATASE 44 U/L (38-126); ANION GAP 3.1 MEQ/L (5-15); BLOOD UREA NITROGEN 11 mg/dL (9-20); CHLORIDE 98 mmol/L (98-107); Calcium 7.4 mg/dL (8.4-10.2); Carbon Dioxide 38 mmol/L (22-30); Creatinine 1 0.56 mg/dL (0.66-1.25); Glucose 126 mg/dL (74-106); MAGNESIUM 2.3 mg/dL (1.6-2.3); Potassium 3.3 mmol/L (3.5-5.1); SGOT/AST 97 U/L (17-59); SGPT/ALT 81 U/L (0-50); SODIUM 136 mmol/L (137-145); Total Protein 6.1 g/dL (6.3-8.2)
[2019-09-22] MEDS ORDERED: D5W/0.45NS W/ 20mEq KCl 1000 ML 1,000 ML IV ONE ×3 (05:53→23:40)
[2019-09-22] MEDS: Zosyn 3.375GM/100 Ml D5W 3.375 GM/100 ML IVPB IV SCH ×4 (05:56→23:31)
[2019-09-22] MEDS: VITAMINS FOR INFUSION IV SCH ×15 (05:56→14:41)
[2019-09-22] MEDS: [UNRECOGNIZED DRUG - OTHER] IV SCH ×15 (05:56→14:41)
[2019-09-22] MEDS: FOLNATE IV SCH ×15 (05:56→14:41)
[2019-09-22] MEDS: DILAUDID 2 MG INJECTION IV PRN ×3 (07:56→23:30)
[2019-09-22] MEDS ORDERED: ENOXAPARIN SODIUM SQ SCH (10:00)
[2019-09-22] MEDS: POTASSIUM CHLORIDE 20 mEq IN WATER 100ML 20 MEQ/100 ML BAG IV SCH ×2 (10:14→12:13)
[2019-09-22] MEDS: PROTONIX 40 MG IV IV SCH (10:14)
--- NOTE | 2019-09-22 11:43 | OP ---
SURGERY DATE/TIME: 09/19/2019 0240 PREOPERATIVE DIAGNOSES: 1) Perforated viscus. 2) Small bowel obstruction. POSTOPERATIVE DIAGNOSES: 1) Perforated diverticulitis with diffuse peritonitis. 2) Small bowel obstruction. PROCEDURES: Gibbs's procedure with release of small bowel obstruction (sigmoid colectomy with end colostomy). SURGEON: Dandy Tellez M.D. ANESTHESIA: General. SPECIMEN: Sigmoid colon. ESTIMATED BLOOD LOSS: 30 cc. COMPLICATIONS: None. FINDINGS: Perforated diverticulitis with sigmoid colon with diffuse peritonitis and small bowel obstruction secondary to adhesions from the diverticulitis. DRAINS: 10 Kinyarwanda ANAY x1. PATIENT PRESENTATION: This patient presents with several days of abdominal pain with worsening on the last day. CT scan showed pneumoperitoneum and a small bowel obstruction. It is diffusely peritoneal exam. After discussing risks, benefits of surgical exploration and possible bowel resection and possible ostomy, the patient wished to proceed with surgery. DESCRIPTION OF PROCEDURE: The patient was brought to the operative room, placed supine on operating table. Placed under general anesthesia. The abdomen was prepped and draped in sterile fashion. A generous midline laparotomy was performed with scalpel and electrocautery. The peritoneum was opened sharply with Metzenbaum scissors. The remainder of the incision was opened up under direct vision with electrocautery. There was purulent fluid throughout the abdomen. The omentum was stuck down into the pelvis, this was freed up. The purulent fluid was suctioned out. Fairly thin adhesions were freed off of the small bowel that were sticking down into the pelvis and the small bowel was slowly eviscerated releasing the small bowel obstruction that was resultant from the peritonitis. The small bowel was very dilated. NG tube was repositioned in the stomach and the stomach was suctioned out with the NG tube. The small bowel consents were melted back into the stomach and the small bowel was decompressed as much as possible with significant improvement of the small bowel distention. Attention was then turned to the sigmoid colon to visit perforation in the mid to distal sigmoid colon. The sigmoid was freed from the left side wall with electrocautery. The medial peritoneum was scored with electrocautery. A healthy portion of left colon was found and a window was created in the mesentery and then it was stapled off with 75 Green JUAN R stapler. The mesentery of the sigmoid colon was then transected with LigaSure down to the rectosigmoid junction. The sigmoid colon was flipped onto itself down in the pelvis and this had to be freed up and pulled out to allow transection of the rest of the mesentery of the sigmoid colon down to the rectosigmoid junction and then the rectosigmoid junction was stapled off with a Green contour stapler. The staple line looked good. The pelvis was then irrigated and suctioned dry. The left colon was then further medialized allowing the white line of Toldt up to the splenic flexure. There appeared to be adequate length for colostomy. A dry creek of skin was excised with electrocautery in left lower quadrant. Subcutaneous tissue and fascia were incised. The fascia incised in cruciate fashion muscle split and the peritoneum excised. The colon was brought up to the ostomy incision. The omentum was pulled down over the small bowel. The fascia was closed with 0 looped PDS suture after first putting a 10 ANAY from the right lower quadrant down into the pelvis. The fascia was closed with 0 looped PDS suture in running fashion starting from above and below and tying the suture in the middle. The skin was loosely stapled and 0.50 inch Iodoform Tristin that were betadine soaked were placed between the xi. The colostomy is then matured with 3-0 Vicryl sutures. The colostomy was satisfactory. It was viable, nice and pink and ostomy appliance and dressing were applied. The patient was recovered and taken to PACU in stable condition.
--- NOTE | 2019-09-22 12:28 | PCM.NOTE ---
Date and Time: 09/22/19 1227 Subjective Assessment: doing better - Review of Systems Constitutional: No Fever, No Chills Eyes: No Symptoms Ears, Nose, & Throat: No Symptoms Respiratory: No Cough, No Short Of Breath Cardiac: No Chest Pain, No Edema, No Syncope Abdominal/Gastrointestinal: Abdominal Pain, No Nausea, No Vomiting, No Diarrhea Genitourinary Symptoms: No Dysuria Musculoskeletal: No Back Pain, No Neck Pain Skin: No Rash Neurological: No Dizziness, No Focal Weakness, No Sensory Changes Psychological: No Symptoms Endocrine: No Symptoms Hematologic/Lymphatic: No Symptoms Immunological/Allergic: No Symptoms Objective Exam General Appearance: no apparent distress, alert Neurologic Exam: alert, 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, cooperative, normal mood/affect, nml cerebellar function, sensation nml, No motor deficits Skin Exam: normal color, warm, dry Wound Assessment: Skin/Wound Assessment Wound/Incision Assessment Start: 09/19/19 23: 32 Text: Status: Active Freq: Q4H Protocol: Document 09/22/19 08:00 BE (Rec: 09/22/19 11:31 BE [id number]) Wound/Incision Assessment Abdomen Wound Assessment Shift Assessment Wound Type Incision Wound Stage Non Pressure Wound Dressing Status Dry & Intact Drainage Amount None General Appearance Clean/Dry Surrounding Tissue [place] Comment dressing CDI Right Abdomen Drain Type ANAY drain Drainage Description Sanguineous Odor None/Absent Drainage Amount (ml) 70 Eye Exam: PERRL, EOMI, eyes nml inspection Ears, Nose, Throat Exam: normal ENT inspection, pharynx normal, moist mucous membranes Neck Exam: normal inspection, non-tender, supple, full range of motion Respiratory Exam: normal breath sounds, lungs clear, No respiratory distress Cardiovascular Exam: regular rate/rhythm, normal heart sounds Gastrointestinal/Abdomen Exam: tenderness, other, No mass Extremity Exam: normal inspection, normal range of motion Back Exam: normal inspection, normal range of motion, No CVA tenderness, No vertebral tenderness Male Genitalia Exam: deferred Rectal Exam: deferred OBJECTIVE DATA Vital Signs: Vital Signs - 24 hr Temp Pulse Resp BP Pulse Ox 09/22/19 12:00 98.0 F 77 18 163/93 92 L 09/22/19 08:18 92 L 09/22/19 07:47 98.3 F 76 18 172/93 92 L 09/22/19 04:00 97.7 F 75 18 164/94 97 09/21/19 23:33 98.5 F 82 18 163/91 92 L 09/21/19 20:34 97 09/21/19 20:00 98.2 F 84 20 151/81 96 09/21/19 16:00 97.7 F 113 H 16 107/63 96 Oxygen-Last 24 hours O2 Percentage 2 Liters = 28% O2 Percentage 2 Liters = 28% O2 Percentage 2 Liters = 28% Pain Assessment - Last Documented Pain Intensity 0 Pain Scale Used 0-10 Pain Scale Intake and Output: Intake & Output 09/20/19 09/21/19 09/22/19 09/23/19 11:59 11:59 11:59 11:59 Intake Total 3701 6169 5872 Output Total 4633 4957 6736 Balance 117 -8982 -741 Lab Results: Lab Results-Last 24 Hours 09/21/19 09/22/19 09/22/19 Range/Units 12:10 04:59 04:59 WBC 9.3 (4.0-10.5) K/mm3 RBC 3.83 L (4.1-5.6) M/mm3 Hgb 13.4 (12.5-18.0) gm/dl Hct 39.4 L (42-50) % MCV 102.9 H (78-100) fl MCH 35.0 H (26-32) pg MCHC 34.0 (32-36) g/dl RDW 11.7 (11.5-14.0) % Plt Count 173 D (150-450) K/mm3 MPV 10.2 H (7.5-11.0) fl Sodium 136 L (137-145) mmol/L Potassium 3.1 L 3.3 L (3.5-5.1) mmol/L Chloride 98 (98-107) mmol/L Carbon Dioxide 38 H (22-30) mmol/L Anion Gap 3.1 L (5-15) MEQ/L BUN 11 (9-20) mg/dL Creatinine 0.56 L (0.66-1.25) mg/dL Estimated GFR > 60.0 ML/MIN Glucose 126 H (74-106) mg/dL Calcium 7.4 L (8.4-10.2) mg/dL Magnesium 2.3 (1.6-2.3) mg/dL Total Bilirubin 1.10 (0.2-1.3) mg/dL AST 97 H (17-59) U/L ALT 81 H (0-50) U/L Alkaline Phosphatase 44 (38-126) U/L Serum Total Protein 6.1 L (6.3-8.2) g/dL Albumin 2.4 L (3.5-5.0) g/dL Assessment/Plan (1) Hypokalemia due to excessive gastrointestinal loss of potassium Current Visit: Yes Status: Acute Code(s): E87.6 - HYPOKALEMIA (2) Intestinal perforation Current Visit: Yes Status: Resolved Code(s): K63.1 - PERFORATION OF INTESTINE (NONTRAUMATIC) (3) Small bowel obstruction Current Visit: Yes Status: Resolved Code(s): K56.609 - UNSP INTESTNL OBST, UNSP TO PARTIAL VERSUS COMPLETE OBST
[2019-09-22] MEDS: Nicoderm CQ 21 MG TOP SCH (15:45)
[2019-09-22] MEDS: Sodium Chloride 0.9% 10 ML FLUSH Syringe IJ SCH (23:35)
[2019-09-23] MEDS: Zosyn 3.375GM/100 Ml D5W 3.375 GM/100 ML IVPB IV SCH ×3 (06:14→18:29)
[2019-09-23] MEDS: Sodium Chloride 0.9% 10 ML FLUSH Syringe IJ SCH ×4 (06:25→21:13)
[2019-09-23] MEDS: VITAMINS FOR INFUSION IV SCH ×5 (07:10)
[2019-09-23] MEDS: [UNRECOGNIZED DRUG - OTHER] IV SCH ×5 (07:10)
[2019-09-23] MEDS: FOLNATE IV SCH ×5 (07:10)
[2019-09-23] MEDS ORDERED: BACIGUENT PACKET TP ONE (07:16)
[2019-09-23] MEDS: DILAUDID 2 MG INJECTION IV PRN ×3 (07:29→20:16)
[2019-09-23] MEDS ORDERED: BACIGUENT 30 GM TOP ONE (07:30)
[2019-09-23] MEDS: PROTONIX 40 MG IV IV SCH (09:18)
[2019-09-23] MEDS ORDERED: Cipro 500 MG PO ONE (10:00)
[2019-09-23] MEDS: Lopressor 25MG Tab PO SCH ×2 (13:05→20:16)
[2019-09-23] MEDS: Nicoderm CQ 21 MG TOP SCH (13:22)
[2019-09-23] MEDS: D5W/0.45NS W/ 20mEq KCl 1000 ML 1,000 ML IV SCH (16:23)
[2019-09-23] MEDS ORDERED: Lopressor 25MG Tab PO SCH (22:00)
[2019-09-23] MEDS ORDERED: ENOXAPARIN SODIUM SQ SCH (22:00)
[2019-09-24] MEDS: Zosyn 3.375GM/100 Ml D5W 3.375 GM/100 ML IVPB IV SCH ×2 (00:15→05:20)
[2019-09-24] MEDS: DILAUDID 2 MG INJECTION IV PRN (01:28)
[2019-09-24] MEDS ORDERED: NORCO 5/325 MG PO PRN (04:40)
[2019-09-24] MEDS: Sodium Chloride 0.9% 10 ML FLUSH Syringe IJ SCH (05:20)
[2019-09-24 06:27] VITALS: PULSE 79
[2019-09-24] MEDS: D5W/0.45NS W/ 20mEq KCl 1000 ML 1,000 ML IV SCH (07:28)
[2019-09-24 08:33] VITALS: BP 183/93; O2SAT 96
[2019-09-24] MEDS: Lopressor 25MG Tab PO SCH (09:49)
[2019-09-24] MEDS: PROTONIX 40 MG IV IV SCH (09:50)
[2019-09-24] MEDS: Zofran 4 MG/2 ML VIAL IVIM PRN (09:52)
[2019-09-24] MEDS ORDERED: FOLATE 1 MG PO SCH (10:00)
[2019-09-24] MEDS ORDERED: VITAMIN B-1 100 MG PO SCH (10:00)
[2019-09-24] MEDS ORDERED: THERAGRAN MULTIVITAMIN PO SCH (10:00)
--- NOTE | 2019-09-24 13:06 | PCM.DS ---
Discharge Summary Date of Admission: 09/19/19 06:22 Admitting Physician: JAMI CESAR MD Primary Care Provider: NO FAMILY DOCTOR Allergies Allergies No Known Drug Allergies Allergy (Verified 02/20/18 16:45) Hospital Summary - Hospital Course Hospital Course: Chief Complaint Diagnosis sbo with perforation Allergies Allergy/AdvReac Type Severity Reaction Status Date / Time No Known Drug Allergies Allergy Verified 02/20/18 16:45 Vital Signs (Last 24 hours) Temp Pulse Resp BP Pulse Ox 09/24/19 08:00 98.6 F 79 18 183/93 96 09/24/19 07:21 94 L 09/24/19 04:00 98.4 F 79 18 136/83 95 09/24/19 00:00 98.4 F 78 18 144/88 96 09/23/19 22:50 95 09/23/19 20:00 98.9 F 75 18 165/104 96 09/23/19 16:00 97.5 F 77 20 165/99 99 Home Medications Medication Instructions Recorded Confirmed Last Taken Type Hydrocodone/APAP 5-325 Tab^^^ 1 each PO Q4HPRN PRN #24 tablet 09/24/19 Unknown Rx [[place] 5-325 Tablet^^^] MDD 6 Metoprolol Tartrate 25 mg 25 mg PO BID #60 tab 09/24/19 Unknown Rx [Lopressor 25MG Tab] Current Medications Discontinued Medications Generic Name Dose Route Start Last Admin Trade Name Freq PRN Reason Stop Dose Admin Acetaminophen 650 mg 09/19/19 07:36 Tylenol 325 Mg PO 10/19/19 07:35 Q4H PRN PRN TEMP > 100 Hydrocodone Bitart/Acetaminophen 1 tab 09/24/19 04:40 09/24/19 09:50 [place] 5/325 Mg PO 09/29/19 04:39 1 tab Q4H PRN PRN Administration PAIN Al Hydrox/Mg Hydrox/Simethicone 20 ml 09/19/19 00:00 09/19/19 00:12 Maalox Es 30 Ml Unit Dose PO 09/19/19 00:01 20 ml STAT ONE Administration Al Hydrox/Mg Hydrox/Simethicone Confirm 09/19/19 00:07 Maalox Es 30 Ml Unit Dose Administered 01/03/20 00:08 Dose 30 ml .ROUTE .STK-MED ONE Bacitracin Zinc 0 gm 09/23/19 07:30 09/23/19 07:29 Baciguent 30 Gm TOP 09/23/19 07:31 1 gm ONCE ONE Administration Ciprofloxacin 500 mg 09/23/19 10:00 09/23/19 09:18 Cipro 500 Mg PO 09/23/19 10:01 500 mg ONCE ONE Administration Citric Acid/Sodium Citrate 30 ml 09/19/19 01:53 09/20/19 07:39 Bicitra 30 Ml Cup PO 09/19/19 01:54 Not Given STAT STA Dexamethasone Sodium Phosphate Confirm 09/19/19 02:08 Decadron 4 Mg Inj Administered 09/19/19 02:09 Dose 8 mg .ROUTE .STK-MED ONE Dexamethasone Sodium Phosphate Confirm 09/19/19 03:01 Decadron 4 Mg Inj Administered 09/19/19 03:02 Dose 8 mg .ROUTE .STK-MED ONE Enoxaparin Sodium 40 mg 09/22/19 10:00 09/22/19 10:14 Enoxaparin Sodium SQ 10/22/19 09:59 40 mg DAILY STEVE Administration Enoxaparin Sodium 40 mg 09/23/19 22:00 09/23/19 20:16 Enoxaparin Sodium SQ 10/23/19 21:59 40 mg HS STEVE Administration Famotidine 20 mg 09/19/19 01:53 09/19/19 01:55 Pepcid 20 Mg Vial IV 09/19/19 01:54 20 mg STAT ONE Administration Famotidine Confirm 09/19/19 01:54 Pepcid 20 Mg Vial Administered 09/19/19 01:55 Dose 20 mg IV .STK-MED ONE Fentanyl Citrate Confirm 09/19/19 02:01 Sublimaze 100 Mcg/2 Ml Administered 09/19/19 02:02 Dose 100 mcg .ROUTE .STK-MED ONE Folic Acid 1 mg 09/24/19 10:00 09/24/19 09:49 Folate 1 Mg PO 10/24/19 09:59 1 mg DAILY STEVE Administration Furosemide Confirm 09/19/19 04:02 Lasix 20 Mg/2 Ml Administered 09/19/19 04:03 Dose 20 mg .ROUTE .STK-MED ONE Hydromorphone HCl 0.5 mg 09/19/19 06:29 Dilaudid 2 Mg Injection IV 09/24/19 06:28 Q4H PRN PRN PAIN Hydromorphone HCl 1 mg 09/21/19 10:56 09/22/19 02:19 Dilaudid 2 Mg Injection IV 09/26/19 10:55 1 mg Q2H PRN Administration PAIN Hydromorphone HCl 1 mg 09/22/19 06:43 09/24/19 01:28 Dilaudid 2 Mg Injection IV 09/27/19 06:42 1 mg Q2H PRN PRN Administration PAIN Sodium Chloride 1,000 mls @ 999 mls/hr 09/18/19 23:06 09/19/19 02:13 Sodium Chloride 0.9% 1000 Ml IV 09/19/19 00:06 Infused .Q1H1M STA Infusion Sodium Chloride Confirm 09/18/19 23:14 Sodium Chloride 0.9% 1000 Ml Administered 09/18/19 23:15 Dose 1,000 mls @ ud .ROUTE .STK-MED ONE Piperacillin Sod/Tazobactam Sod 3.375 gm in 100 mls @ 200 mls/hr 09/19/19 00: 45 09/19/19 00:59 Zosyn 3.375gm/100 Ml D5w IV 09/19/19 01:14 100 ml/hr STAT STA 100 mls/hr Administration Piperacillin Sod/Tazobactam Sod Confirm 09/19/19 00:54 Zosyn 3.375gm/100 Ml D5w Administered 09/19/19 00:55 Dose 3.375 gm in 100 mls @ ud IV .STK-MED ONE Sodium Chloride 1,000 mls @ 999 mls/hr 09/19/19 01:00 09/19/19 02:14 Sodium Chloride 0.9% 1000 Ml IV 09/19/19 02:00 Infused .Q1H1M STA Infusion Sodium Chloride Confirm 09/19/19 01:03 Sodium Chloride 0.9% 1000 Ml Administered 09/19/19 01:04 Dose 1,000 mls @ ud .ROUTE .STK-MED ONE Lactated Ringer's Confirm 09/19/19 02:07 Lactated Ringers Administered 09/19/19 02:08 Dose 1,000 mls @ ud IV .STK-MED ONE Cefoxitin Sodium Confirm 09/19/19 02:10 Mefoxin 2 Gm Premix Administered 09/19/19 02:11 Dose 2 gm in 50 mls @ ud IV .STK-MED ONE Cefoxitin Sodium 2 gm in 50 mls @ 100 mls/hr 09/19/19 03:00 09/19/19 02:19 Mefoxin 2 Gm Premix IV 09/19/19 03:29 100 ml/hr ONCALLTOOR STEVE 100 mls/hr Administration Sodium Chloride 1,000 mls @ 200 mls/hr 09/19/19 06:29 09/19/19 06:48 Sodium Chloride 0.9% 1000 Ml IV 10/19/19 06:28 200 mls/hr .Q5H STEVE Administration Ropivacaine 62.5 mg/ 267.5 mls @ 10 mls/hr 09/19/19 04:50 Sufentanil Citrate 250 mcg/ IV 10/19/19 04:49 Sodium Chloride .Q24H STEVE Piperacillin Sod/Tazobactam Sod 3.375 gm in 100 mls @ 200 mls/hr 09/19/19 07: 00 09/24/19 05:20 Zosyn 3.375gm/100 Ml D5w IV 10/19/19 06:59 200 mls/hr Q6HT STEVE Administration Lactated Ringer's 1,000 mls @ 150 mls/hr 09/19/19 08:00 Lactated Ringers IV 10/19/19 07:59 .Q6H40M STEVE Sodium Chloride 1,000 mls @ 150 mls/hr 09/19/19 06:00 09/19/19 06:50 Sodium Chloride 0.9% 1000 Ml IV 10/19/19 05:59 150 mls/hr .Q6H40M STEVE Administration Lactated Ringer's Confirm 09/19/19 01:59 Lactated Ringers Administered 09/19/19 02:00 Dose 3,000 mls @ ud IV .STK-MED ONE Folic Acid 1 mg/ Multivitamins 1,011.2 mls @ 150 mls/hr 09/19/19 17:15 11:56 /Minerals 10 ml/ Thiamine HCl IV 10/19/19 17:14 150 mls/hr 100 mg/ Sodium Chloride .BY DURATION STEVE Administration Sodium Chloride 1,000 mls @ 150 mls/hr 09/19/19 17:15 09/21/19 01:49 Sodium Chloride 0.9% 1000 Ml IV 10/19/19 17:14 150 mls/hr .BY DURATION STEVE Administration Sodium Chloride Confirm 09/20/19 02:05 Sodium Chloride 0.9% 1000 Ml Administered 09/20/19 02:06 Dose 1,000 mls @ ud .ROUTE .STK-MED ONE Sodium Chloride Confirm 09/20/19 17:34 Sodium Chloride 0.9% 1000 Ml Administered 09/20/19 17:35 Dose 1,000 mls @ ud .ROUTE .STK-MED ONE Sodium Chloride Confirm 09/21/19 01:48 Sodium Chloride 0.9% 1000 Ml Administered 09/21/19 01:49 Dose 1,000 mls @ ud .ROUTE .STK-MED ONE Potassium Chloride 20 meq in 100 mls @ 50 mls/hr 09/21/19 05:45 09/21/19 08: 23 Potassium Chloride 20 Meq In Water 100ml IV 09/21/19 09:44 50 mls/hr Q2H STEVE Administration Folic Acid 1 mg/ Multivitamins 1,011.2 mls @ 125 mls/hr 09/21/19 15:00 14:41 /Minerals 10 ml/ Thiamine HCl IV 10/19/19 17:14 125 mls/hr 100 mg/ Sodium Chloride .BY DURATION STEVE Administration Potassium Chloride/Dextrose/Sod Cl 1,000 mls @ 125 mls/hr 09/21/19 15:00 04/05 07:10 D5w/0.45ns W/ 20meq Kcl 1000 Ml IV 10/19/19 17:14 125 mls/hr .BY DURATION STEVE Administration Potassium Chloride/Dextrose/Sod Cl Confirm 09/21/19 20:27 D5w/0.45ns W/ 20meq Kcl 1000 Ml Administered 09/21/19 20:28 Dose 1,000 mls @ ud IV .STK-MED ONE Potassium Chloride/Dextrose/Sod Cl Confirm 09/22/19 05:53 D5w/0.45ns W/ 20meq Kcl 1000 Ml Administered 09/22/19 05:54 Dose 1,000 mls @ ud IV .STK-MED ONE Potassium Chloride 20 meq in 100 mls @ 50 mls/hr 09/22/19 09:15 09/22/19 12: 13 Potassium Chloride 20 Meq In Water 100ml IV 09/22/19 13:14 50 mls/hr Q2H STEVE Administration Potassium Chloride/Dextrose/Sod Cl Confirm 09/22/19 14:16 D5w/0.45ns W/ 20meq Kcl 1000 Ml Administered 09/22/19 14:17 Dose 1,000 mls @ ud IV .STK-MED ONE Potassium Chloride/Dextrose/Sod Cl Confirm 09/22/19 23:40 D5w/0.45ns W/ 20meq Kcl 1000 Ml Administered 09/22/19 23:41 Dose 1,000 mls @ ud IV .STK-MED ONE Potassium Chloride/Dextrose/Sod Cl 1,000 mls @ 75 mls/hr 09/23/19 16:00 09/24 07:28 D5w/0.45ns W/ 20meq Kcl 1000 Ml IV 10/23/19 15:59 75 mls/hr .[id number] STEVE Administration Ketorolac Tromethamine 30 mg 09/18/19 23:08 09/18/19 23:20 Toradol 30 Mg Injection IV 09/18/19 23:09 30 mg STAT ONE Administration Ketorolac Tromethamine Confirm 09/18/19 23:14 Toradol 30 Mg Injection Administered 09/18/19 23:15 Dose 30 mg .ROUTE .STK-MED ONE Lidocaine/Epinephrine Confirm 09/19/19 04:05 Xylocaine 2%/Epi 1:000453 20ml Vial Mpf Administered 09/19/19 04:06 Dose 40 ml .ROUTE .STK-MED ONE Loratadine 10 mg 09/19/19 07:45 Claritin 10 Mg PO 10/19/19 07:44 QDP PRN ITCHING Lorazepam 0 mg 09/19/19 17:30 Ativan 2 Mg/1 Ml Vial IV 10/19/19 17:29 Q2-4HPRN PRN Metoprolol Tartrate 25 mg 09/23/19 22:00 Lopressor 25mg Tab PO 10/23/19 21:59 BID STEVE Metoprolol Tartrate 25 mg 09/23/19 12:20 09/24/19 09:49 Lopressor 25mg Tab PO 10/23/19 12:19 25 mg BID STEVE Administration Morphine Sulfate 4 mg 09/19/19 00:46 09/19/19 00:59 Morphine Sulfate 4 Mg Inj IV 09/19/19 00:47 4 mg STAT ONE Administration Morphine Sulfate Confirm 09/19/19 00:53 Morphine Sulfate 4 Mg Inj Administered 09/19/19 00:54 Dose 4 mg .ROUTE .STK-MED ONE Morphine Sulfate 2 mg 09/19/19 06:29 Morphine Sulfate 2 Mg Inj IV 09/24/19 06:28 Q4H PRN PRN PAIN Morphine Sulfate 2 - 4 mg 09/19/19 07:45 09/21/19 11:02 Morphine Sulfate 2 Mg Inj IV 09/24/19 07:44 2 mg Q2H/PRN PRN Administration SEVERE PAIN Multivitamins Therapeutic 1 tab 09/24/19 10:00 09/24/19 09:49 Theragran Multivitamin PO 10/24/19 09:59 1 tab DAILY STEVE Administration Nalbuphine HCl 5 mg 09/19/19 07:45 Nalbuphine Hcl 10 Mg/1 Ml Injection IV 10/19/19 07:44 Q4H PRN PRN SEVERE ITCHING Naloxone HCl 0.1 mg 09/19/19 07:45 Narcan 0.4 Mg/Ml IV 10/19/19 07:44 PRN PRN Nicotine 21 mg 09/19/19 15:00 09/23/19 13:22 Nicoderm Cq 21 Mg TOP 10/19/19 14:59 21 mg Q24H STEVE Administration Ondansetron HCl 4 mg 09/19/19 00:00 09/19/19 00:10 Zofran 4 Mg/2 Ml Vial IV 09/19/19 00:01 4 mg STAT ONE Administration Ondansetron HCl Confirm 09/19/19 00:07 Zofran 4 Mg/2 Ml Vial Administered 09/19/19 00:08 Dose 4 mg .ROUTE .STK-MED ONE Ondansetron HCl Confirm 09/19/19 02:08 Zofran 4 Mg/2 Ml Vial Administered 09/19/19 02:09 Dose 4 mg .ROUTE .STK-MED ONE Ondansetron HCl Confirm 09/19/19 03:01 Zofran 4 Mg/2 Ml Vial Administered 09/19/19 03:02 Dose 4 mg .ROUTE .STK-MED ONE Ondansetron HCl 4 mg 09/19/19 06:29 Zofran 4 Mg/2 Ml Vial IV 10/19/19 06:28 Q6H PRN PRN NAUSEA/VOMITING Ondansetron HCl 4 mg 09/19/19 07:45 09/24/19 09:52 Zofran 4 Mg/2 Ml Vial IVIM 10/19/19 06:28 4 mg Q6H PRN PRN Administration NAUSEA/VOMITING Ondansetron HCl 4 mg 09/19/19 07:45 Zofran 4 Mg/2 Ml Vial IV 10/19/19 07:44 PRN PRN NAUSEA Oxycodone/Acetaminophen 0 tab 09/19/19 07:45 Percocet Tablet 5/325mg PO 09/24/19 07:44 Q4H/PRN PRN MODERATE PAIN Pantoprazole Sodium 40 mg 09/21/19 14:45 09/24/19 09:50 Protonix 40 Mg Iv IV 10/21/19 14:44 40 mg DAILY STEVE Administration Potassium Chloride 40 meq 09/18/19 23:44 09/19/19 00:10 Klor Con 10 Meq PO 09/18/19 23:45 40 meq STAT ONE Administration Potassium Chloride Confirm 09/19/19 00:07 Klor Con 10 Meq Administered 09/19/19 00:08 Dose 30 meq PO .STK-MED ONE Prochlorperazine Edisylate 10 mg 09/19/19 00:36 09/20/19 07:39 Compazine 10 Mg/2 Ml IV 09/19/19 00:37 Not Given STAT ONE Prochlorperazine Edisylate Confirm 09/19/19 00:53 Compazine 10 Mg/2 Ml Administered 09/19/19 00:54 Dose 10 mg .ROUTE .STK-MED ONE Promethazine HCl 12.5 mg 09/19/19 17:30 Phenergan 25 Mg Inj IV 10/19/19 17:29 Q4H/PRN PRN NAUSEA/VOMITING Promethazine HCl 12.5 mg 09/19/19 17:30 Phenergan 25 Mg Inj IM 10/19/19 17:29 Q4H/PRN PRN NAUSEA/VOMITING Propofol Confirm 09/19/19 02:01 Diprivan 200 Mg/20 Ml Administered 09/19/19 02:02 Dose 200 mg IV .STK-MED ONE Rocuronium [place] Confirm 09/19/19 02:01 Zemuron 100 Mg/10 Ml Administered 09/19/19 02:02 Dose 30 mg .ROUTE .STK-MED ONE Sodium Chloride 10 ml 09/19/19 14:00 09/24/19 05:20 Sodium Chloride 0.9% 10 Ml Flush Syringe IJ 10/19/19 13:59 Not Given QSHIFT STEVE Sodium Chloride 10 ml 09/19/19 07:45 Sodium Chloride 0.9% 10 Ml Flush Syringe IJ 10/19/19 07:44 PRN PRN Succinylcholine Chloride Confirm 09/19/19 02:01 Quelicin Fliptop 200 Mg/10 Ml Administered 09/19/19 02:02 Dose 100 mg .ROUTE .STK-MED ONE Thiamine HCl 100 mg 09/24/19 10:00 09/24/19 09:49 Vitamin B-1 100 Mg PO 10/24/19 09:59 100 mg DAILY STEVE Administration Intake & Output (Last 24 hours) 09/22/19 09/23/19 09/24/19 09/25/19 11:59 11:59 11:59 11:59 Intake Total 3613 3959 3572 Output Total 6328 2750 2895 Balance -257 1209 677 Weight 81.647 kg Laboratory Results (Last 24 hours) 09/19/19 04:00 Surg PTH Diagnosis See Note H Orders (Last 24 hours) Category Date Time Status Regular Diet Diet 09/24/19 Breakfast Completed Discharge Routine Discharge 09/24/19 Ordered D5w-0.45NACL W/ 20Meq KCl [D5W/0.45NS W/ 20mEq KCl 1000 Med 09/23/19 16:00 Discontinued ML] 1,000 ml IV 75 mls/hr Enoxaparin Sodium [Enoxaparin Sodium] Med 09/23/19 22:00 Discontinued 40 mg SQ HS Folic Acid 1 mg [Folate 1 mg] Med 09/24/19 10:00 Discontinued 1 mg PO DAILY Hydrocodone/APAP 5/325 [[place] 5/325 mg] Med 09/24/19 04:40 Discontinued 1 tab PO Q4H PRN PRN Metoprolol Tartrate 25 mg [Lopressor 25MG Tab] Med 09/23/19 12:20 Discontinued 25 mg PO BID Metoprolol Tartrate 25 mg [Lopressor 25MG Tab] Med 09/23/19 22:00 Discontinued 25 mg PO BID Multivitamins,Therapeutic Tab* [Theragran Multivitamin* Med 09/24/19 10:00 Discontinued ] 1 tab PO DAILY Thiamine HCl 100 mg [Vitamin B-1 100 mg] Med 09/24/19 10:00 Discontinued 100 mg PO DAILY Patient Care Notes (Last 24 hours) 09/24/19 12:42 Case Management Note by Nazanin Montague FAXED RX'S AND INFORMATION TO [facility], , FOR ALL OSTOMY SUPPLIES. Initialized on 09/24/19 12:42 - END OF NOTE 09/24/19 12:35 Nursing Note by LIT LEGGETT PT'S COLOSTOMY AND ABDOMINAL DRESSING CHANGED AND EDUCATED PT AND MOTHER ON CARE. EDUCATION MATERIALS ALSO GIVEN TO PT. EDUCATED PT ON CARE FOR ANAY DRAIN AND HOW TO EMPTY AND RECORD AMOUNT. PT STATED UNDERSTANDING USING TEACH BACK METHOD. Initialized on 09/24/19 12:35 - END OF NOTE 09/24/19 12:00 (created 09/24/19 12:45) Case Management Note by Nazanin Montague PLAN TO RETURN HOME TO PRE EPISODIC LEVEL OF [facility]. INDEPENDENT WITH ALL ADL'S. DOES NOT WANT [facility]. FEELS COMFORTABLE CHANGING AND CARING FOR OSTOMY. Initialized on 09/24/19 12:45 - END OF NOTE 09/23/19 13:34 Nursing Note by LIT LEGGETT PT WALKED ABOUT 800 FEET WITH STAND BY ASSIST. PT TOLERATED WELL. Initialized on 09/23/19 13:34 - END OF NOTE - Vitals & Intake/Output Vital Signs: Vital Signs Temperature 98.6 F 09/24/19 08:00 Pulse Rate 79 09/24/19 08:00 Respiratory Rate 18 09/24/19 08:00 Blood Pressure 183/93 09/24/19 08:00 O2 Sat by Pulse Oximetry 96 09/24/19 08:00 Oxygen-Last Documented O2 Percentage 2 Liters = 28% Intake & Output: Intake & Output 09/22/19 09/23/19 09/24/19 09/25/19 11:59 11:59 11:59 11:59 Intake Total 3613 3959 3572 Output Total 3870 3116 4349 Balance -257 1209 677 Weight 81.647 kg - Lab Result Diagrams: 09/22/19 04:59 09/22/19 16:26 Lab Results-Last 24 Hrs: Lab Results-Last 24 Hours 09/19/19 Range/Units 04:00 Surg PTH Diagnosis See Note H Micro Results-Entire Visit: Microbiology 09/19/19 03:00 Urine Culture - Final Urine, Catheterized NO GROWTH - Procedures and Test Procedures and Tests throughout Hospitalization: Therapy Orders & Screens 09/19/19 07:23 Oxygen NASAL CANNULA 2 lpm Comment: Diagnosis: sbo with perforation 09/19/19 08:57 Smoking Cessation Education ONCE Comment: Diagnosis: sbo with perforation Smoking Status: Current every day smoker How long have you smoked: "years" Have you smoked in the past 12 months: Yes Approximately how many cigarettes per day: pack a day. Do you dip or chew tobacco: No 09/19/19 13:00 Incentive Spirometry UD Comment: Diagnosis: sbo with perforation Discharge Exam General Appearance: no apparent distress, alert Neurologic Exam: alert, 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, cooperative, normal mood/affect, nml cerebellar function, sensation nml, No motor deficits Eye Exam: PERRL, EOMI, eyes nml inspection Ears, Nose, Throat Exam: normal ENT inspection, pharynx normal, moist mucous membranes Neck Exam: normal inspection, non-tender, supple, full range of motion Respiratory Exam: normal breath sounds, lungs clear, No respiratory distress Cardiovascular Exam: regular rate/rhythm, normal heart sounds Gastrointestinal/Abdomen Exam: soft, No tenderness, No mass Male Genitalia Exam: deferred Rectal Exam: deferred Back Exam: normal inspection, normal range of motion, No CVA tenderness, No vertebral tenderness Extremity Exam: normal inspection, normal range of motion Skin Exam: normal color, warm, dry Final Diagnosis/Problem List - Final Discharge Diagnosis/Problem (1) Hypokalemia due to excessive gastrointestinal loss of potassium Status: Resolved Code(s): E87.6 - HYPOKALEMIA (2) Intestinal perforation Status: Resolved Code(s): K63.1 - PERFORATION OF INTESTINE (NONTRAUMATIC) (3) Small bowel obstruction Status: Resolved Code(s): K56.609 - UNSP INTESTNL OBST, UNSP TO PARTIAL VERSUS COMPLETE OBST - Discharge Discharge Date: 09/24/19 Disposition: Home, Self-Care Condition: Stable Prescriptions: New Metoprolol Tartrate 25 mg [Lopressor 25MG Tab] 25 mg PO BID #60 tab Hydrocodone/APAP 5-325 Tab^^^ [[place] 5-325 Tablet^^^] 1 each PO Q4HPRN PRN # 24 tablet MDD 6 PRN Reason: Pain Instructions: How to Care for Your Ostomy, Adult, High Blood Pressure (DC), Perforation of the GI Tract (DC), Colostomy Care Additional Instructions: LEAVE DRAIN IN UNTIL APPOINTMENT WITH DR JAMI CESAR ON 09/29/19. BRING PICTURE ID, INSURANCE INFO AND MED LIST. [facility] WILL HAVE YOUR COLOSTOMY SUPPLIES, WILL NEED TO PICK THEM UP TODAY BEFORE 5PM [id number] [place] [id number] Follow up with: JAMI CESAR MD [ASSOCIATE STAFF] - 09/29/19 10:30 am СЕРГЕЙ ADAMES MD [ACTIVE STAFF] - 09/30/19 9:45 am Forms: Discharge Instructions
== END 2019-09-24 12:35 | disposition home or self-care (01) | DRG 329 ==
LOC: ED 21:52 → MED SURG 09-19 06:22
PROVIDERS: ADMIT Surgery; ATTEND General Practice
PROC: 0DTN0ZZ Resection of Sigmoid Colon, Open Approach (ICD-10-PCS; principal; 2019-09-19)
PROC: 0D1N0Z4 Bypass Sigmoid Colon to Cutaneous, Open Approach (ICD-10-PCS; 2019-09-19)
DX: K57.20 Diverticulitis of large intestine with perforation and abscess without bleeding (principal); K65.0 Generalized (acute) peritonitis; K56.609 Unspecified intestinal obstruction, unspecified as to partial versus complete obstruction; E87.1 Hypo-osmolality and hyponatremia; E87.6 Hypokalemia
CPT/HCPCS: 36000; 36415; 62326; 74176; 80048; 80053; 81001; 82271; 83605; 83690; 83735; 84132; 85025; 85027; 87086; 90686; 94760; 94762; 96360; 96361; 96365; 96367; 96374; 96375; 99140; 99285; J0330; J0694; J1100; J1170; J1650; J1885; J1940; J2270; J2405; J2543; J2704; J2795; J3010; J3480; L0625; A9270-GY

== ENCOUNTER 2019-10-13 16:00 | Emergency (ER) | payer MEDICAID ==
--- NOTE | 2019-10-13 16:42 | ERPHSYRPT ---
- History of Present Illness Time Seen by Provider: 10/13/19 16:30 Source: patient Patient Subjective Stated Complaint: pt here for pain to abd with bright red blood in colostomy bag, started today at 1300. he had ostomy placed this month for diverticuli Triage Nursing Assessment: pt alert, walked in, resp easy,skin w/d/p. pt has colostomy to left side of abd with brown stool in bag, abd soft Physician History: 44 y/o white male presents with h/o left lower quad end colostomy of 24 days duration. pt underwent emergent colon resection, end colostomy and hartmanns pouch for perforated diverticulitis. the last couple of days pt has noticed crampy tenderness in area of colostomy with bm or passing of flatus and some blood within the ostomy bag. this is new for him. pt is also out of his pain meds. denies fevers. Timing/Duration: day(s) (2) Quality: painful Severity: mild Location: other (left lower quad abd colostomy ) Associated Symptoms: denies symptoms Allergies/Adverse Reactions: No Known Drug Allergies Allergy (Verified 10/13/19 16:18) Hx Tetanus, Diphtheria Vaccination/Date Given: No (unknown) Hx Influenza Vaccination/Date Given: Yes Hx Pneumococcal Vaccination/Date Given: No Immunizations Up to Date: Yes - Review of Systems Constitutional: No Symptoms Eyes: No Symptoms Ears, Nose, & Throat: No Symptoms Respiratory: No Symptoms Cardiac: No Symptoms Abdominal/Gastrointestinal: Abdominal Pain (in area of left lower quad colostomy site) Genitourinary Symptoms: No Symptoms Musculoskeletal: No Symptoms Skin: Other (see above) Neurological: No Symptoms Psychological: No Symptoms Endocrine: No Symptoms Hematologic/Lymphatic: No Symptoms Immunological/Allergic: No Symptoms - Past Medical History Pertinent Past Medical History: Yes Neurological History: No Pertinent History ENT History: No Pertinent History Cardiac History: No Pertinent History Respiratory History: No Pertinent History Endocrine Medical History: No Pertinent History Musculoskeletal History: No Pertinent History GI Medical History: Diverticulitis, Diverticulosis, Other History: No Pertinent History Psycho-Social History: No Pertinent History Male Reproductive Disorders: No Pertinent History Other Medical History: cyst removed from right back shoulder approx 2015: Bowel resection with colostomy 10/09/2018: - Past Surgical History Past Surgical History: Yes Gastrointestinal: Bowel Surgery Genitourinary: No Pertinent History Musculoskeletal: Orthopedic Surgery Male Surgical History: No Pertinent History - Social History Smoking Status: Current every day smoker How long have you smoked: "years" Exposure to second hand smoke: Yes Drug Use: marijuana Patient Lives Alone: No - Nursing Vital Signs Nursing Vital Signs: Initial Vital Signs Temperature 97.2 F 10/13/19 16:11 Pulse Rate 99 H 10/13/19 16:11 Respiratory Rate 18 10/13/19 16:11 Blood Pressure 134/96 10/13/19 16:11 O2 Sat by Pulse Oximetry 100 10/13/19 16:11 Pain Scale Pain Intensity 2 - Physical Exam General Appearance: no apparent distress, alert, anxiety Eye Exam: PERRL/EOMI Ears, Nose, Throat Exam: normal ENT inspection, moist mucous membranes Neck Exam: normal inspection, non-tender, supple, full range of motion, thyromegaly Respiratory Exam: No chest tenderness Cardiovascular Exam: regular rate/rhythm, normal heart sounds, normal peripheral pulses Gastrointestinal/Abdomen Exam: soft, normal bowel sounds, tenderness (in area of colostomy. colostomy functioning with stool in ostomy bag. no visible redness ), No guarding, No rebound Back Exam: normal inspection, normal range of motion, No CVA tenderness, No vertebral tenderness Extremity Exam: normal inspection, normal range of motion, pelvis stable Neurologic Exam: alert, 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, cooperative, .net programmer II-XII nml as tested, normal mood/affect, nml cerebellar function, nml station & gait Skin Exam: other (ostomy appliance removed. retracted ostomy pink and functioning. no evidence of periostomy infection. ) Lymphatic Exam: No adenopathy SpO2 Interpretation: normal SpO2: 100 O2 Delivery: Room Air - Course Nursing assessment & vital signs reviewed: Yes Ordered Tests: Active Orders 24 hr Category Date Time Status ABDOMEN AND PELVIS W/0 CONTRAS [CT] Stat Exams 10/13/19 16:43 Taken CBC W DIFF Stat Lab 10/13/19 17:15 Completed Lab/Rad Data: Laboratory Result Diagrams 10/13/19 17:15 Laboratory Results 10/13/19 Range/Units 17:15 WBC 11.4 H (4.0-10.5) K/mm3 RBC 4.08 L (4.1-5.6) M/mm3 Hgb 14.5 (12.5-18.0) gm/dl Hct 41.6 L (42-50) % MCV 102.0 H (78-100) fl MCH 35.5 H (26-32) pg MCHC 34.9 (32-36) g/dl RDW 12.8 (11.5-14.0) % Plt Count 293 (150-450) K/mm3 MPV 9.1 (7.5-11.0) fl Gran % 69.8 H (36.0-66.0) % Eos # (Auto) 0.11 (0-0.5) Absolute Lymphs (auto) 1.92 (1.0-4.6) Absolute Monos (auto) 1.36 H (0.0-1.3) Lymphocytes % 16.9 L (24.0-44.0) % Monocytes % 12.0 (0.0-12.0) % Eosinophils % 1.0 (0.00-5.0) % Basophils % 0.3 (0.0-0.4) % Absolute Granulocytes 7.95 H (1.4-6.9) Basophils # 0.03 (0-0.4) - Progress Progress: improved, pain not gone completely, re-examined Progress Note: 10/13/19 18:24 ct abd/pelvis-no intraabd air or fluid collection. postop vs. infectious induration peristomal Counseled pt/family regarding: lab results, diagnosis, need for follow-up, rad results - Departure Departure Disposition: Home Clinical Impression: Leukocytosis, Peristomal skin complication Condition: Stable Critical Care Time: No Referrals: DOCTOR,NO FAMILY [NON-STAFF PHY W/O PRIVILEGES] - Additional Instructions: drink plenty of fluids. follow up with general surgeon tomorrow to arrange postoperative appointment. Prescriptions: Hydrocodone/APAP 5/325 [[place] 5/325 mg] 1 each PO Q8H PRN PRN #9 tablet MDD 3 PRN Reason: Pain Ciprofloxacin [Cipro 500 MG] 500 mg PO BID #14 tablet Metronidazole 500 mg [Flagyl 500 MG] 500 mg PO TID #21 tablet
[2019-10-13 17:26] LABS: Absolute Neutrophil Ct (ANC) 7.95 (1.4-6.9); BASOPHIL % 0.3 % (0.0-0.4); Basophil (Absolute #) 0.03 (0-0.4); Eosinophil (Absolute #) 0.11 (0-0.5); Hematocrit 41.6 % (42-50); Hemoglobin 14.5 gm/dl (12.5-18.0); Lymphocyte (Absolute #) 1.92 (1.0-4.6); Lymphocytes % 16.9 % (24.0-44.0); Mean Corpuscular Hemoglobin 35.5 pg (26-32); Mean Corpuscular Hgb Concent. 34.9 g/dl (32-36); Mean Platelet Volume 9.1 fl (7.5-11.0); Monocyte (Absolute #) 1.36 (0.0-1.3); Neutrophil % 69.8 % (36.0-66.0); Platelet Count 293 K/mm3 (150-450); Red Blood Count 4.08 M/mm3 (4.1-5.6); Red Cell Distribution Width 12.8 % (11.5-14.0); White Blood Count 11.4 K/mm3 (4.0-10.5)
[2019-10-13] MEDS ORDERED: Flagyl 500 MG PO ONE (18:23)
[2019-10-13] MEDS ORDERED: Levofloxacin 500 MG Tablet PO ONE (18:23)
[2019-10-13] MEDS ORDERED: Levofloxacin 500 MG Tablet ONE (18:25)
[2019-10-13] MEDS ORDERED: Flagyl 500 MG ONE (18:26)
[2019-10-13] MEDS ORDERED: NORCO 5/325 MG PO ONE (18:43)
[2019-10-13] MEDS ORDERED: NORCO 5/325 MG ONE (18:44)
[2019-10-13 18:54] VITALS: BP 130/67; PULSE 80; O2SAT 98
--- NOTE | 2019-10-14 08:45 | XRAY ---
Indication: Pain around ostomy site. Multiple contiguous axial images obtained through the abdomen and pelvis without contrast as ordered. Comparison: September 18, 2019. Lung bases again demonstrates bibasilar atelectasis/scarring without infiltrate or effusion. Heart is not enlarged. Noncontrasted stomach and bowel loops appear nonobstructed. There has been interval sigmoid resection with new left lower quadrant colostomy. Subcutaneous fat around the ostomy site is mildly indurated either postoperative versus infectious. No suspicious fluid or air collection. Rectal stump intact. Stable fatty liver and 15.9 cm splenomegaly. Gallbladder is contracted without gallstones. No free fluid/air. Remaining liver, gallbladder, pancreas, spleen, adrenal glands, kidneys, ureters, and bladder appear unremarkable for noncontrast exam. Stable minimal aortoiliac calcifications without AAA. Impression: 1. Status post sigmoid resection with left lower quadrant colostomy. Subcutaneous fat around the ostomy site mildly indurated either postoperative versus infectious. 2. Stable fatty liver and splenomegaly. 3. Remaining CT abdomen/pelvis without contrast exam is negative.
== END 2019-10-13 18:53 | disposition home or self-care (01) ==
LOC: ED 16:00
DX: D72.829 Elevated white blood cell count, unspecified (principal); L76.82 Other postprocedural complications of skin and subcutaneous tissue
CPT/HCPCS: 36415; 74176; 85025; 99284; A9270-GY

== ENCOUNTER 2019-10-25 12:59 | Emergency (ER) | payer MEDICAID ==
[2019-10-25] MEDS ORDERED: Sodium Chloride 0.9% 1000 ML 1,000 ML IV STA (13:19)
--- NOTE | 2019-10-25 13:28 | ERPHSYRPT ---
- History of Present Illness Time Seen by Provider: 10/25/19 13:26 Source: patient, family Exam Limitations: no limitations Patient Subjective Stated Complaint: Pt states "For the past few days I have been getting these weird headaches on and off. Today I started to throw up when they hit. I am not sure if I am just getting the flu or what." Triage Nursing Assessment: Pt presented alert and oriented X 3, skin pwd. Pt ambulates with an upright steady gait, able to speak in clear full sentences. PT in no apparent respiratory distress. Physician History: Pt states "For the past few days I have been getting these weird headaches on and off. Today I started to throw up when they hit. I am not sure if I am just getting the flu or what." No fever or chills. no nausea, vomiting or diarrhea Timing/Duration: today Quality: aching Head Pain Location: frontal Severity of Pain-Max: moderate Severity of Pain-Current: mild Recent Head Trauma: no recent headache/trauma Associated Symptoms: nausea/vomiting Previous symptoms: no prior history Allergies/Adverse Reactions: No Known Drug Allergies Allergy (Verified 10/13/19 16:18) Hx Tetanus, Diphtheria Vaccination/Date Given: No Hx Influenza Vaccination/Date Given: Yes Hx Pneumococcal Vaccination/Date Given: No Immunizations Up to Date: Yes - Review of Systems Constitutional: No Fever, No Chills Eyes: No Symptoms Ears, Nose, & Throat: No Symptoms Respiratory: No Cough, No Dyspnea Cardiac: No Chest Pain, No Edema, No Syncope Abdominal/Gastrointestinal: Nausea, No Abdominal Pain, No Vomiting, No Diarrhea Genitourinary Symptoms: No Dysuria Musculoskeletal: No Back Pain, No Neck Pain Skin: No Rash Neurological: Headache, No Dizziness, No Focal Weakness, No Sensory Changes Psychological: No Symptoms Endocrine: No Symptoms All Other Systems: Reviewed and Negative - Past Medical History Pertinent Past Medical History: Yes Neurological History: No Pertinent History ENT History: No Pertinent History Cardiac History: No Pertinent History Respiratory History: No Pertinent History Endocrine Medical History: No Pertinent History Musculoskeletal History: No Pertinent History GI Medical History: Diverticulitis, Diverticulosis, Other History: No Pertinent History Psycho-Social History: No Pertinent History Male Reproductive Disorders: No Pertinent History Other Medical History: cyst removed from right back shoulder approx 2015: Bowel resection with colostomy 10/09/2018: - Past Surgical History Past Surgical History: Yes Gastrointestinal: Bowel Surgery Genitourinary: No Pertinent History Musculoskeletal: Orthopedic Surgery Male Surgical History: No Pertinent History Other Surgical History: cholostomy - Social History Smoking Status: Current every day smoker How long have you smoked: years Exposure to second hand smoke: Yes Drug Use: marijuana Patient Lives Alone: No - Nursing Vital Signs Nursing Vital Signs: Initial Vital Signs Temperature 97.4 F 10/25/19 13:02 Pulse Rate 60 10/25/19 13:02 Respiratory Rate 14 10/25/19 13:02 Blood Pressure 129/82 10/25/19 13:02 O2 Sat by Pulse Oximetry 97 10/25/19 13:02 Pain Scale Pain Intensity 0 - Physical Exam General Appearance: no apparent distress Eye Exam: PERRL/EOMI Ears, Nose, Throat Exam: normal ENT inspection, moist mucous membranes Neck Exam: normal inspection, supple, full range of motion, No meningismus Respiratory Exam: normal breath sounds, lungs clear Cardiovascular Exam: regular rate/rhythm, normal heart sounds Gastrointestinal/Abdominal Exam: soft, No tenderness, No distention Back Exam: normal inspection, normal range of motion Mental Status Exam: alert, 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, 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 Exam: normal speech, PERRL, No facial droop Coordination/Gait Exam: normal cerebellar function Motor/Sensory Exam: no motor deficit, no sensory deficit Skin Exam: normal color, warm, dry, No rash SpO2: 97 - Course Nursing assessment & vital signs reviewed: Yes - CT Exams Head CT Interpretation: Tele-radiologist Report (pansinusitis, tiny old parietal hemorrhage ) Ordered Tests: Active Orders 24 hr Category Date Time Status HEAD WITHOUT CONTRAST [CT] Stat Exams 10/25/19 13:19 Taken CBC W DIFF Stat Lab 10/25/19 13:19 Ordered CMP Stat Lab 10/25/19 13:19 Ordered Erythrocyte Sedimentation Rate Stat Lab 10/25/19 13:19 Ordered UA W/RFX UR CULTURE Stat Lab 10/25/19 13:19 Uncollected Urine Triage Profile Stat Lab 10/25/19 13:19 Uncollected Medication Summary Discontinued Medications Generic Name Dose Route Start Last Admin Trade Name Freq PRN Reason Stop Dose Admin Sodium Chloride 1,000 mls @ 999 mls/hr 10/25/19 13:19 10/25/19 14:14 Sodium Chloride 0.9% 1000 Ml IV 10/25/19 14:19 999 mls/hr .Q1H1M STA Administration Sodium Chloride Confirm 10/25/19 14:12 Sodium Chloride 0.9% 1000 Ml Administered 10/25/19 14:13 Dose 1,000 mls @ ud .ROUTE .STK-MED ONE Lab/Rad Data: Laboratory Results 10/25/19 Range/Units 14:00 Influenza Type A Ag NEGATIVE (NEGATIVE) Influenza Type B Ag NEGATIVE (NEGATIVE) RSV (PCR) NEGATIVE (Negative) - Progress Progress: improved Air Movement: good Blood Culture(s) Obtained: No Antibiotics given: No Counseled pt/family regarding: lab results, diagnosis, need for follow-up, rad results - Departure Departure Disposition: Home Clinical Impression: Acute pansinusitis, unspecified Qualifiers: Recurrence: non-recurrent Qualified Code(s): J01.40 - Acute pansinusitis, unspecified Headache Qualifiers: Headache type: unspecified Headache chronicity pattern: acute headache Intractability: not intractable Qualified Code(s): R51 - Headache Condition: Stable Critical Care Time: No Referrals: СЕРГЕЙ ADAMES MD [Primary Care Provider] - Instructions: Headache, Adult (DC) Additional Instructions: Discharge/Care Plan MONICA VALENTIN was seen on 10/25/19 in the Emergency Room. The patient was counseled regarding Diagnosis,Lab results, Imaging studies, need for follow up and when to return to the Emergency Room. Prescriptions given: Discharge Note I have spoken with the patient and/or caregivers. I have explained the patient' s condition, diagnosis and treatment plan based on the information available to me at this time. I have answered the patient's and/or caregiver's questions and addressed any concerns. The patient and/or caregivers have as good understanding of the patient's diagnosis, condition and treatment plan as can be expected at this point. The vital signs have been stable. The patient's condition is stable and appropriate for discharge from the emergency department. The patient will pursue further outpatient evaluation with the primary care physician or other designated or consulting physician as outlined in the discharge instructions. The patient and/or caregivers are agreeable to this plan of care and follow-up instructions have been explained in detail. The patient and/or caregivers have received these instruction. The patient/and or caregivers are aware that any significant change in condition or worsening of symptoms should prompt an immediate return to this or the closest emergency department or call 911. MONICA VALENTIN was seen on 10/25/19 n the Emergency Room. At that time you were treated for an emergent condition, during your visit Laboratory, Radiology and/or other procedures may have been ordered. It is very important that you follow-up with your Primary Care Physician СЕРГЕЙ ADAMES within the next 24- 48 hours to review your Emergency Room visit and the final results of testing that was ordered. Some test results such as Urine Cultures, Blood Cultures, and other cultures if ordered will not be finalized for 24-48 hours. If you do not have a Primary Care Provider please call the medical records department at [phone] ext [phone] to obtain a copy of your results or you may sign into our patient portal to obtain these results by visiting us @ [email or web address] and completing the following steps: 1. Click on the Patient Portal link 2. Click the Patient Self Enrollment Link to complete the enrollment form and entering your 3. Once the enrollment form is completed you will receive an email with a temporary ID and password at the email address you provided. 4. Next choose a user name and password. Your user name must be at least 4 characters long and your password must be at least 4 characters long. 5. Choose a security question from the list and provide your answer to the question. If you already have signed into the Health Portal you may access your Health Care Information 09/04 by the following steps: 1. Login to our website @ [email or web address] 2. Enter your original user name and password. FAQS The [facility] Health Portal is an online tool that contains your Lab Results, Radiology Reports, Visit History, Discharge Instructions and Health Summary Lab and Radiology Results will not be available for 72 hours on the portal. The Portal is a secure site, passwords are encryted and URLs are re-written so they cannot be copied and pasted. You and authorized family members are the only ones who can access your Portal. Also there is a timeout feature that protects your information if you leave the Portal page open. If you have technical difficulty please use the Contact Us link on the page this will allow you to submit any questions you have regarding the Portal or you may contact the Medical Record Department at [phone] ext [phone]. Prescriptions: Fluticasone Furoate [Flonase Sensimist] 15.8 ml NS BID #1 spray.susp Cephalexin Mh 500 mg [Keflex 500 mg] 500 mg PO Q6H #40 capsule
[2019-10-25] MEDS ORDERED: Sodium Chloride 0.9% 1000 ML 1,000 ML ONE (14:12)
[2019-10-25 14:27] LABS: INFLUENZA A NEGATIVE (NEGATIVE); INFLUENZA B NEGATIVE (NEGATIVE); RESPIRATORY SYNCTIAL VIRUS NEGATIVE (Negative)
[2019-10-25 14:59] LABS: Absolute Neutrophil Ct (ANC) 6.92 (1.4-6.9); BASOPHIL % 0.1 % (0.0-0.4); Basophil (Absolute #) 0.01 (0-0.4); Eosinophil % 1.2 % (0.00-5.0); Eosinophil (Absolute #) 0.12 (0-0.5); Hematocrit 46.3 % (42-50); Hemoglobin 15.4 gm/dl (12.5-18.0); Lymphocyte (Absolute #) 1.95 (1.0-4.6); Lymphocytes % 19.6 % (24.0-44.0); Mean Cell Volume 102.9 fl (78-100); Mean Corpuscular Hemoglobin 34.2 pg (26-32); Mean Corpuscular Hgb Concent. 33.3 g/dl (32-36); Mean Platelet Volume 10.2 fl (7.5-11.0); Monocyte (Absolute #) 0.94 (0.0-1.3); Monocytes % 9.5 % (0.0-12.0); Neutrophil % 69.6 % (36.0-66.0); Platelet Count 262 K/mm3 (150-450); Red Cell Distribution Width 12.4 % (11.5-14.0); White Blood Count 9.9 K/mm3 (4.0-10.5)
[2019-10-25 15:09] LABS: ALBUMIN 3.9 g/dL (3.5-5.0); ALKALINE PHOSPHATASE 88 U/L (38-126); ANION GAP 7.6 MEQ/L (5-15); BLOOD UREA NITROGEN 5 mg/dL (9-20); CHLORIDE 105 mmol/L (98-107); Carbon Dioxide 27 mmol/L (22-30); Creatinine 1 0.58 mg/dL (0.66-1.25); Glucose 94 mg/dL (74-106); Potassium 4.2 mmol/L (3.5-5.1); SGOT/AST 41 U/L (17-59); SGPT/ALT 25 U/L (0-50); SODIUM 136 mmol/L (137-145); Total Protein 8.1 g/dL (6.3-8.2)
[2019-10-25 15:29] VITALS: BP 136/83; PULSE 51; O2SAT 100
[2019-10-25 15:32] LABS: Erythrocyte Sedimentation Rate 10 mm/hr (0-15)
--- NOTE | 2019-10-25 21:36 | XRAY ---
Indication: Left temporal headache several days. Blurred vision and vomiting. Multiple contiguous axial images obtained through the head without contrast. Comparison: None Normal appearing brain parenchyma, ventricles, and bony calvarium. There is mild/moderate mucosal thickening of all paranasal sinuses with right maxillary and right sphenoid sinus fluid leveling. Mastoid air cells are clear. Query small left occipital scalp hematoma Impression: Pansinusitis. Query small left occipital scalp hematoma. No acute intracranial abnormalities or fracture. Comment: Preliminary interpretation was made by [facility]. No critical discrepancy.
== END 2019-10-25 15:36 | disposition home or self-care (01) ==
LOC: ED 12:59
DX: J01.40 Acute pansinusitis, unspecified (principal); R51 Headache
CPT/HCPCS: 36000; 36415; 70450; 80053; 85025; 85652; 87631; 96360; 96374; 99284

== ENCOUNTER 2020-04-10 20:36 | Emergency (ER) | payer OTHER ==
[2020-04-10] MEDS ORDERED: Sodium Chloride 0.9% 1000 ML 1,000 ML IV STA (20:52)
[2020-04-10] MEDS ORDERED: Zofran 4 MG/2 ML VIAL IV ONE (20:52)
[2020-04-10 21:07] LABS: Absolute Neutrophil Ct (ANC) 5.51 (1.4-6.9); BASOPHIL % 0.3 % (0.0-0.4); Basophil (Absolute #) 0.03 (0-0.4); Eosinophil % 3.6 % (0.00-5.0); Eosinophil (Absolute #) 0.35 (0-0.5); Hematocrit 40.6 % (42-50); Hemoglobin 13.6 gm/dl (12.5-18.0); Lymphocyte (Absolute #) 2.68 (1.0-4.6); Lymphocytes % 27.7 % (24.0-44.0); Mean Cell Volume 98.1 fl (78-100); Mean Corpuscular Hemoglobin 32.9 pg (26-32); Mean Corpuscular Hgb Concent. 33.5 g/dl (32-36); Mean Platelet Volume 9.2 fl (7.5-11.0); Monocytes % 11.4 % (0.0-12.0); Platelet Count 318 K/mm3 (150-450); Red Blood Count 4.14 M/mm3 (4.1-5.6); Red Cell Distribution Width 12.7 % (11.5-14.0); White Blood Count 9.7 K/mm3 (4.0-10.5)
[2020-04-10] MEDS ORDERED: Sodium Chloride 0.9% 1000 ML 1,000 ML ONE (21:08)
[2020-04-10] MEDS ORDERED: Zofran 4 MG/2 ML VIAL ONE (21:08)
[2020-04-10 21:18] LABS: ALBUMIN 4.2 g/dL (3.5-5.0); ALKALINE PHOSPHATASE 122 U/L (38-126); AMYLASE 104 U/L (30-110); ANION GAP 14.4 MEQ/L (5-15); BLOOD UREA NITROGEN 11 mg/dL (9-20); CHLORIDE 103 mmol/L (98-107); Calcium 9.2 mg/dL (8.4-10.2); Carbon Dioxide 26 mmol/L (22-30); Creatinine 1 0.73 mg/dL (0.66-1.25); Glucose 105 mg/dL (74-106); LIPASE 94 U/L (23-300); SGOT/AST 32 U/L (17-59); SGPT/ALT 41 U/L (0-50); SODIUM 139 mmol/L (137-145); Total Protein 8.7 g/dL (6.3-8.2)
[2020-04-10 21:25] LABS: Appearance SLIGHTLY CLOUDY (CLEAR); Bilirubin NEGATIVE (NEGATIVE); Blood NEGATIVE Ery/ul (0-5); Glucose NEGATIVE (NEGATIVE); Ketones NEGATIVE (NEGATIVE); Leukocyte Esterase NEGATIVE (NEGATIVE); Mucus SLIGHT /HPF (NEGATIVE); Nitrite NEGATIVE (NEGATIVE); Protein,Urine Dip NEGATIVE (Negative); RBC 0-2 /HPF (0-2); Specific Gravity 1.029 (1.005-1.025); Urobilinogen 2 mg/dL (0-1)
[2020-04-10 21:29] LABS: Bacteria NONE SEEN /HPF (NEGATIVE)
--- NOTE | 2020-04-10 21:33 | ERPHSYRPT ---
- History of Present Illness Time Seen by Provider: 04/10/20 21:31 Historian: patient Exam Limitations: no limitations Patient Subjective Stated Complaint: pt states that today at 1530 be began to feel dizzy, pt states that an hour later he began to feel nauseous, pt states that on March 10, 2020 he has a reverse colostomy done, pt states that on March 17, 2020 that reversal ruptured, pt state he is feeling the same way as the reputure Triage Nursing Assessment: pt ambulated into the er, pt is axo x3, c/o N, c/o dizziness, hx of colonostomy, ostomy present to RUQ, midline incision present, minimal drainage to incision present, hyperactive bowel sounds in all quads, denies pain, abd soft, no pain with palpation, vital wnl Physician History: pt states that today at 1530 be began to feel dizzy, pt states that an hour later he began to feel nauseous, pt states that on March 10, 2020 he has a reverse colostomy done, pt states that on March 17, 2020 that reversal ruptured, state he is feeling the same way as the rupture Timing/Duration: today Activities at Onset: none Severity of Pain-Max: none Severity of Pain-Current: none Associated Symptoms: nausea Allergies/Adverse Reactions: No Known Drug Allergies Allergy (Verified 04/10/20 20:46) Hx Tetanus, Diphtheria Vaccination/Date Given: No Hx Influenza Vaccination/Date Given: Yes Hx Pneumococcal Vaccination/Date Given: No Travel Risk - International Travel Have you traveled outside of the country in past 3 weeks: No - Coronavirus Screening Are you exhibiting any of the following symptoms?: No Close contact with a COVID-19 positive Pt in past 14-21 Days: No - Review of Systems Constitutional: No Fever, No Chills Eyes: No Symptoms Ears, Nose, & Throat: No Symptoms Respiratory: No Cough, No Dyspnea Cardiac: No Chest Pain, No Edema, No Syncope Abdominal/Gastrointestinal: Nausea, No Abdominal Pain, No Vomiting, No Diarrhea Genitourinary Symptoms: No Dysuria Musculoskeletal: No Back Pain, No Neck Pain Skin: No Rash Neurological: No Dizziness, No Focal Weakness, No Sensory Changes Psychological: No Symptoms Endocrine: No Symptoms All Other Systems: Reviewed and Negative - Past Medical History Pertinent Past Medical History: Yes Neurological History: No Pertinent History ENT History: No Pertinent History Cardiac History: No Pertinent History Respiratory History: No Pertinent History Endocrine Medical History: No Pertinent History Musculoskeletal History: No Pertinent History GI Medical History: Diverticulitis, Diverticulosis, Other History: No Pertinent History Psycho-Social History: No Pertinent History Male Reproductive Disorders: No Pertinent History Other Medical History: cyst removed from right back shoulder approx 2015: Bowel resection with colostomy 10/09/2018: - Past Surgical History Past Surgical History: Yes Gastrointestinal: Bowel Surgery Genitourinary: No Pertinent History Musculoskeletal: Orthopedic Surgery Male Surgical History: No Pertinent History Other Surgical History: cholostomy: ostomy reversal on 03/10/20, March 17, 2020 rupture of colon - Social History Smoking Status: Current every day smoker How long have you smoked: years Exposure to second hand smoke: Yes Drug Use: marijuana Patient Lives Alone: No - Nursing Vital Signs Nursing Vital Signs: Initial Vital Signs Temperature 98.2 F 04/10/20 20:47 Pulse Rate 101 H 04/10/20 20:47 Respiratory Rate 14 04/10/20 20:47 Blood Pressure 131/92 04/10/20 20:47 O2 Sat by Pulse Oximetry 100 04/10/20 20:47 Pain Scale Pain Intensity 0 - Physical Exam General Appearance: no apparent distress, alert Eye Exam: PERRL/EOMI, eyes nml inspection Ears, Nose, Throat Exam: normal ENT inspection, pharynx normal, moist mucous membranes Neck Exam: normal inspection, non-tender, supple, full range of motion Respiratory Exam: normal breath sounds, lungs clear, No respiratory distress Cardiovascular Exam: regular rate/rhythm, normal heart sounds Gastrointestinal/Abdomen Exam: soft, No tenderness, No mass Back Exam: normal inspection, normal range of motion, No CVA tenderness, No vertebral tenderness Extremity Exam: normal inspection, normal range of motion, pelvis stable Neurologic Exam: alert, 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, cooperative, normal mood/affect, nml cerebellar function, sensation nml, No motor deficits Skin Exam: normal color, warm, dry SpO2: 100 - Course Nursing assessment & vital signs reviewed: Yes - CT Exams Abdomen/Pelvis CT Interpretation: Tele-radiologist Report (no acute findings) Ordered Tests: Active Orders 24 hr Category Date Time Status ABDOMEN AND PELVIS W/0 CONTRAS [CT] Stat Exams 04/10/20 20:52 Taken AMYLASE Stat Lab 04/10/20 21:04 Completed CBC W DIFF Stat Lab 04/10/20 21:04 Completed CMP Stat Lab 04/10/20 21:04 Completed LIPASE Stat Lab 04/10/20 21:04 Completed Lactic Acid Stat Lab 04/10/20 21:00 Completed UA W/RFX UR CULTURE Stat Lab 04/10/20 21:19 Completed Medication Summary Generic Name Dose Route Start Last Admin Trade Name Alida PRN Reason Stop Dose Admin Sodium Chloride 1,000 mls @ 999 mls/hr 04/10/20 20:52 04/10/20 21:10 Sodium Chloride 0.9% 1000 Ml IV 04/10/20 21:52 999 mls/hr .Q1H1M STA Administration Discontinued Medications Generic Name Dose Route Start Last Admin Trade Name Paulinoq PRN Reason Stop Dose Admin Sodium Chloride Confirm 04/10/20 21:08 Sodium Chloride 0.9% 1000 Ml Administered 04/10/20 21:09 Dose 1,000 mls @ ud .ROUTE .STK-MED ONE Ondansetron HCl 4 mg 04/10/20 20:52 04/10/20 21:10 Zofran 4 Mg/2 Ml Vial IV 04/10/20 20:53 4 mg STAT ONE Administration Ondansetron HCl Confirm 04/10/20 21:08 Zofran 4 Mg/2 Ml Vial Administered 04/10/20 21:09 Dose 4 mg .ROUTE .STK-MED ONE Lab/Rad Data: Laboratory Result Diagrams 04/10/20 21:04 04/10/20 21:04 Laboratory Results 04/10/20 04/10/20 04/10/20 Range/Units 21:19 21:04 21:04 WBC 9.7 (4.0-10.5) K/mm3 RBC 4.14 (4.1-5.6) M/mm3 Hgb 13.6 (12.5-18.0) gm/dl Hct 40.6 L (42-50) % MCV 98.1 (78-100) fl MCH 32.9 H (26-32) pg MCHC 33.5 (32-36) g/dl RDW 12.7 (11.5-14.0) % Plt Count 318 (150-450) K/mm3 MPV 9.2 (7.5-11.0) fl Gran % 57.0 (36.0-66.0) % Eos # (Auto) 0.35 (0-0.5) Absolute Lymphs (auto) 2.68 (1.0-4.6) Absolute Monos (auto) 1.10 (0.0-1.3) Lymphocytes % 27.7 (24.0-44.0) % Monocytes % 11.4 (0.0-12.0) % Eosinophils % 3.6 (0.00-5.0) % Basophils % 0.3 (0.0-0.4) % Absolute Granulocytes 5.51 (1.4-6.9) Basophils # 0.03 (0-0.4) Sodium 139 (137-145) mmol/L Potassium 4.0 (3.5-5.1) mmol/L Chloride 103 (98-107) mmol/L Carbon Dioxide 26 (22-30) mmol/L Anion Gap 14.4 (5-15) MEQ/L BUN 11 (9-20) mg/dL Creatinine 0.73 (0.66-1.25) mg/dL Estimated GFR > 60.0 ML/MIN Glucose 105 (74-106) mg/dL Lactic Acid (0.4-2.0) Calcium 9.2 (8.4-10.2) mg/dL Total Bilirubin 0.40 (0.2-1.3) mg/dL AST 32 (17-59) U/L ALT 41 (0-50) U/L Alkaline Phosphatase 122 (38-126) U/L Serum Total Protein 8.7 H (6.3-8.2) g/dL Albumin 4.2 (3.5-5.0) g/dL Amylase 104 (30-110) U/L Lipase 94 (23-300) U/L Urine Color YELLOW (YELLOW) Urine Appearance SLIGHTLY CLOUDY (CLEAR) Urine pH 5.0 (5-6) Ur Specific [place] 1.029 (1.005-1.025) Urine Protein NEGATIVE (Negative) Urine Ketones NEGATIVE (NEGATIVE) Urine Blood NEGATIVE (0-5) Juan Carlos/ul Urine Nitrite NEGATIVE (NEGATIVE) Urine Bilirubin NEGATIVE (NEGATIVE) Urine Urobilinogen 2 (0-1) mg/dL Ur Leukocyte Esterase NEGATIVE (NEGATIVE) Urine WBC (Auto) NONE (0-5) /HPF Urine RBC (Auto) 0-2 (0-2) /HPF U Epithel Cells (Auto) NONE (FEW) /HPF Urine Bacteria (Auto) NONE SEEN (NEGATIVE) /HPF Urine Mucus (Auto) SLIGHT (NEGATIVE) /HPF Urine Culture Reflexed NO (NO) Urine Glucose NEGATIVE (NEGATIVE) mg/dL 04/10/20 Range/Units 21:00 WBC (4.0-10.5) K/mm3 RBC (4.1-5.6) M/mm3 Hgb (12.5-18.0) gm/dl Hct (42-50) % MCV (78-100) fl MCH (26-32) pg MCHC (32-36) g/dl RDW (11.5-14.0) % Plt Count (150-450) K/mm3 MPV (7.5-11.0) fl Gran % (36.0-66.0) % Eos # (Auto) (0-0.5) Absolute Lymphs (auto) (1.0-4.6) Absolute Monos (auto) (0.0-1.3) Lymphocytes % (24.0-44.0) % Monocytes % (0.0-12.0) % Eosinophils % (0.00-5.0) % Basophils % (0.0-0.4) % Absolute Granulocytes (1.4-6.9) Basophils # (0-0.4) Sodium (137-145) mmol/L Potassium (3.5-5.1) mmol/L Chloride (98-107) mmol/L Carbon Dioxide (22-30) mmol/L Anion Gap (5-15) MEQ/L BUN (9-20) mg/dL Creatinine (0.66-1.25) mg/dL Estimated GFR ML/MIN Glucose (74-106) mg/dL Lactic Acid 1.5 (0.4-2.0) Calcium (8.4-10.2) mg/dL Total Bilirubin (0.2-1.3) mg/dL AST (17-59) U/L ALT (0-50) U/L Alkaline Phosphatase (38-126) U/L Serum Total Protein (6.3-8.2) g/dL Albumin (3.5-5.0) g/dL Amylase (30-110) U/L Lipase (23-300) U/L Urine Color (YELLOW) Urine Appearance (CLEAR) Urine pH (5-6) Ur Specific [place] (1.005-1.025) Urine Protein (Negative) Urine Ketones (NEGATIVE) Urine Blood (0-5) Juan Carlos/ul Urine Nitrite (NEGATIVE) Urine Bilirubin (NEGATIVE) Urine Urobilinogen (0-1) mg/dL Ur Leukocyte Esterase (NEGATIVE) Urine WBC (Auto) (0-5) /HPF Urine RBC (Auto) (0-2) /HPF U Epithel Cells (Auto) (FEW) /HPF Urine Bacteria (Auto) (NEGATIVE) /HPF Urine Mucus (Auto) (NEGATIVE) /HPF Urine Culture Reflexed (NO) Urine Glucose (NEGATIVE) mg/dL - Progress Progress: improved Counseled pt/family regarding: lab results, diagnosis, need for follow-up, rad results - Departure Departure Disposition: Home Clinical Impression: Nausea, Lower abdominal pain Condition: Stable Critical Care Time: No Referrals: СЕРГЕЙ ADAMES MD [Primary Care Provider] - Additional Instructions: Discharge/Care Plan MONICA VALENTIN was seen on 04/10/20 in the Emergency Room. The patient was counseled regarding Diagnosis,Lab results, Imaging studies, need for follow up and when to return to the Emergency Room. Prescriptions given: Discharge Note I have spoken with the patient and/or caregivers. I have explained the patient's condition, diagnosis and treatment plan based on the information available to me at this time. I have answered the patient's and/or caregiver's questions and addressed any concerns. The patient and/or caregivers have as good understanding of the patient's diagnosis, condition and treatment plan as can be expected at this point. The vital signs have been stable. The patient's condition is stable and appropriate for discharge from the emergency department. The patient will pursue further outpatient evaluation with the primary care physician or other designated or consulting physician as outlined in the discharge instructions. The patient and/or caregivers are agreeable to this plan of care and follow-up instructions have been explained in detail. The patient and/or caregivers have received these instruction. The patient/and or caregivers are aware that any significant change in condition or worsening of symptoms should prompt an immediate return to this or the closest emergency department or call 911. MONICA VALENTIN was seen on 04/10/20 n the Emergency Room. At that time you were treated for an emergent condition, during your visit Laboratory, Radiology and/or other procedures may have been ordered. It is very important that you follow-up with your Primary Care Physician СЕРГЕЙ ADAMES within the next 24-48 hours to review your Emergency Room visit and the final results of testing that was ordered. Some test results such as Urine Cultures, Blood Cultures, and other cultures if ordered will not be finalized for 24-48 hours. If you do not have a Primary Care Provider please call the medical records department at [phone] ext [phone] to obtain a copy of your results or you may sign into our patient portal to obtain these results by visiting us @ [email or web address] and completing the following steps: 1. Click on the Patient Portal link 2. Click the Patient Self Enrollment Link to complete the enrollment form and entering your 3. Once the enrollment form is completed you will receive an email with a temporary ID and password at the email address you provided. 4. Next choose a user name and password. Your user name must be at least 4 characters long and your password must be at least 4 characters long. 5. Choose a security question from the list and provide your answer to the question. If you already have signed into the Health Portal you may access your Health Care Information 09/04 by the following steps: 1. Login to our website @ [email or web address] 2. Enter your original user name and password. FAQS The [facility] Health Portal is an online tool that contains your Lab Results, Radiology Reports, Visit History, Discharge Instructions and Health Summary Lab and Radiology Results will not be available for 72 hours on the portal. The Portal is a secure site, passwords are encryted and URLs are re-written so they cannot be copied and pasted. You and authorized family members are the only ones who can access your Portal. Also there is a timeout feature that protects your information if you leave the Portal page open. If you have technical difficulty please use the Contact Us link on the page this will allow you to submit any questions you have regarding the Portal or you may contact the Medical Record Department at [phone].
[2020-04-10 21:49] VITALS: O2SAT 100
[2020-04-10 21:57] VITALS: BP 125/74; PULSE 92
--- NOTE | 2020-04-11 06:52 | XRAY ---
Indication: Abdomen pain and nausea. Multiple contiguous axial images obtained through the abdomen and pelvis without contrast as ordered. Comparison: October 13, 2019. Lung bases are clear. Heart is not enlarged. Stomach is distended with food/fluid. Noncontrasted stomach and bowel loops remain nonobstructed. New right periumbilical ileostomy and new sigmoid reanastomosis. Proximal descending colon demonstrates short focus of new pericolonic stranding favoring colitis. No free fluid/air. Stable fatty liver and 13.9 cm splenomegaly. Gallbladder contracted without gallstones. Remaining pancreas, adrenal glands, kidneys, ureters, and bladder appear unremarkable for noncontrast exam. Stable minimal aortoiliac calcifications without AAA. Osseous structures intact again with minimal degenerative changes throughout the spine. Impression: 1. Interval new right periumbilical ileostomy and sigmoid reanastomosis. 2. New proximal descending colon pericolonic stranding favoring colitis. 3. Again incidental fatty liver and splenomegaly. Comment: Preliminary interpretation was made by [facility]. No critical discrepancy.
== END 2020-04-10 22:03 | disposition home or self-care (01) ==
LOC: ED 20:36
DX: R11.0 Nausea (principal); R10.11 Right upper quadrant pain; R10.31 Right lower quadrant pain; R42 Dizziness and giddiness
CPT/HCPCS: 36415; 74176; 80053; 81001; 82150; 83605; 83690; 85025; 96360; 96374; 99284; J2405